=== PATIENT | male | born 1960 | race Caucasian/White ===

== ENCOUNTER 2018-07-14 00:20 | Emergency (ER) | payer OTHER ==
[2018-07-14 02:24] LABS: ABSOLUTE BASOPHILS # (AUTO) 0.1 10^3/uL (0.0-0.2); ABSOLUTE EOSINOPHILS # (AUTO) 0.2 10^3/uL (0.0-0.6); ABSOLUTE LYMPHOCYTES (AUTO) 3.3 10^3/uL (0.5-4.7); ABSOLUTE NEUT (AUTO) 6.9 10^3/uL (1.7-8.2); BASOPHILS % (AUTO) 0.9 % (0-2); EOSINOPHILS % (AUTO) 2.1 % (0-6); HEMATOCRIT 45.4 % (37.9-51.0); HEMOGLOBIN 15.5 g/dL (13.5-17.0); LYMPHOCYTES % (AUTO) 28.4 % (13-45); MEAN CORPUSCULAR HEMOGLOBIN 30.3 pg (27.0-33.4); MEAN CORPUSCULAR HGB CONC 34.2 g/dL (32.0-36.0); MEAN CORPUSCULAR VOLUME 89 fl (80-97); MONOCYTES % (AUTO) 8.7 % (3-13); PLATELET COUNT 271 10^3/uL (150-450); RED BLOOD COUNT 5.12 10^6/uL (4.35-5.55); SEGMENTED NEUTROPHILS % (AUTO) 59.9 % (42-78); TOTAL CELLS COUNTED % (AUTO) 100 %; WHITE BLOOD COUNT 11.5 10^3/uL (4.0-10.5)
[2018-07-14 02:41] LABS: ALANINE AMINOTRANSFERASE 22 U/L (21-72); ALBUMIN 4.3 g/dL (3.5-5.0); ALKALINE PHOSPHATASE 96 U/L (38-126); ANION GAP 8 (5-19); ASPARTATE AMINO TRANSFERASE 19 U/L (17-59); BILIRUBIN,DIRECT 0.3 mg/dL (0.0-0.4); BILIRUBIN,TOTAL 0.4 mg/dL (0.2-1.3); BLOOD UREA NITROGEN 30 mg/dL (7-20); CALCIUM 9.7 mg/dL (8.4-10.2); CARBON DIOXIDE 24 mmol/L (22-30); CHLORIDE 110 mmol/L (98-107); GLUCOSE 100 mg/dL (75-110); POTASSIUM 4.1 mmol/L (3.6-5.0); SODIUM 141.6 mmol/L (137-145); TOTAL PROTEIN 6.9 g/dL (6.3-8.2)
--- NOTE | 2018-07-14 03:35 | RADIOLOGY REPORT (SQ) ---
EXAM DESCRIPTION: XR CHEST 1 VIEW COMPLETED DATE/TME: 07/14/2018 02:44 CLINICAL HISTORY: 58 years, Male, CP COMPARISON: None. NUMBER OF VIEWS: 1 TECHNIQUE: Portable chest LIMITATIONS: None. FINDINGS: Heart size normal. Lungs clear. No pneumothorax IMPRESSION: Negative chest copyright 2010 [employer]- All Rights Reserved
--- NOTE | 2018-07-14 06:48 | ER Document Report ---
ED General - General Chief Complaint: Chest Pain Stated Complaint: CHEST PAIN Time Seen by Provider: 07/14/18 02:43 Primary Care Provider: MICHAELA MCELROY [Primary Care Provider] - Follow up as needed Notes: Patient is a 58-year-old male presents to the emergency department for intermittent chest pain. Patient states he currently does not have any chest pain. States he has had multiple recent deaths in his family and feels very anxious. Patient states he does have a history of anxiety but has had this recurrent chest pain so he decided to present to the emergency room. Patient states around the age of 22 he did have a stress test and catheterization due to extensive cocaine use and recurrent chest pain. Patient is denying shortness of breath, nausea, vomiting, diarrhea, abdominal pain, URI symptoms, fever. Past medical history: Anxiety Medications: Currently none Allergies: none Patient is a smoker, history of past cocaine use. States he currently does not use cocaine or any other illicit drugs. TRAVEL OUTSIDE OF THE [place] IN LAST 30 DAYS: No - Related Data Allergies/Adverse Reactions: No Known Allergies Allergy (Unverified 11/28/11 15:06) Past Medical History - General Information source: Patient - Social History Smoking Status: Current Every Day Smoker Chew tobacco use (# tins/day): No Drug Abuse: Cocaine Family History: Reviewed & Not Pertinent Patient has suicidal ideation: No Patient has homicidal ideation: No Renal/ Medical History: Denies: Hx Peritoneal Dialysis - Immunizations Hx Diphtheria, Pertussis, Tetanus Vaccination: Yes Review of Systems - Review of Systems Constitutional: No symptoms reported EENT: No symptoms reported Cardiovascular: See HPI Respiratory: No symptoms reported Gastrointestinal: No symptoms reported Genitourinary: No symptoms reported Male Genitourinary: No symptoms reported Musculoskeletal: No symptoms reported Skin: No symptoms reported Hematologic/Lymphatic: No symptoms reported Neurological/Psychological: No symptoms reported Physical Exam - Vital signs Vitals: Temp Pulse Resp BP Pulse Ox 97.8 F 102 H 18 119/78 97 07/14/18 01:02 07/14/18 01:02 07/14/18 01:02 07/14/18 01:02 07/14/18 01:02 - Notes Notes: GENERAL: Alert, interacts well. No acute distress. HEAD: Normocephalic, atraumatic. EYES: Pupils equal, round, and reactive to light. Extraocular movements intact. ENT: Oral mucosa moist, tongue midline. NECK: Full range of motion. Supple. Trachea midline. LUNGS: Clear to auscultation bilaterally, no wheezes, rales, or rhonchi. No respiratory distress. HEART: Regular rate and rhythm. No murmur Chest: No crepitus felt, no erythema or ecchymosis noted anterior posterior chest wall ABDOMEN: Soft, non-tender. Non-distended. Bowel sounds present in all 4 quadrants. EXTREMITIES: Moves all 4 extremities spontaneously. No edema, normal radial and dorsalis pedis pulses bilaterally. No cyanosis. BACK: no cervical, thoracic, lumbar midline tenderness. No saddle anesthesia, normal distal neurovascular exam. NEUROLOGICAL: Alert and oriented x3. Normal speech. cranial nerves II through XII grossly intact. PSYCH: Normal affect, normal mood. SKIN: Warm, dry, normal turgor. No rashes or lesions noted. Course - Re-evaluation Re-evalutation: Patient's labs show a slight leukocytosis of 11.5, no signs of anemia, patient had delta negative troponins. Patient's chest x-ray shows no signs of pneumonia, pneumothorax, rib fracture. Initial EKG in the emergency department shows a sinus rhythm rate of 98, QTC 450, no ST segment elevations or depressions. Repeat EKG done with repeat troponin shows a sinus rhythm of 68, QTC 434, no ST segment elevations or depressions noted. Patient continues to be chest pain-free in the emergency department. Patient's heart score is currently a 2 based on his age and risk factor of smoking. Patient does state this chest pain had come and gone pretty frequently while he was at his family's funerals. I feel as though his heart score tied with history of anxiety, negative delta troponin, chest pain-free the entire stay in the emergency department patient is stable for discharge. - Vital Signs Vital signs: Temp Pulse Resp BP Pulse Ox 97.8 F 102 H 14 116/80 99 07/14/18 01:02 07/14/18 01:02 07/14/18 05:01 07/14/18 05:00 07/14/18 05:01 - Laboratory Result Diagrams: 07/14/18 02:14 07/14/18 02:14 Laboratory results interpreted by me: 07/14/18 07/14/18 02:14 02:14 WBC 11.5 H Chloride 110 H BUN 30 H Discharge - Discharge Clinical Impression: Chest pain Qualifiers: Chest pain type: unspecified Qualified Code(s): R07.9 - Chest pain, unspecified Condition: Stable Disposition: HOME, SELF-CARE Instructions: Chest Pain of Unclear Cause ([facility]) Additional Instructions: As we discussed you have been seen and treated in the emergency department for your generalized chest pain. Feels no signs of abnormalities. As we discussed this may be due to your anxiety. You should follow-up with your primary care provider or return to the emergency room should you have any other episodes of chest pain. [facility] will be provided in this packet. This is a clinic you can go to if you are uninsured. [facility]errals: [facility] [[facility] - Follow up as needed [facility] [Provider Group] - Follow up as needed
[2018-07-14 06:52] VITALS: BP 112/83
--- NOTE | 2018-07-14 08:14 | EKG REPORT ---
SEVERITY:- NORMAL ECG - SINUS RHYTHM : Confirmed by: Marco Washington MD 14-Jul-2018 08:14:18
--- NOTE | 2018-07-14 08:15 | EKG REPORT ---
SEVERITY:- NORMAL ECG - SINUS RHYTHM : Confirmed by: Marco Washington MD 14-Jul-2018 08:14:32
== END 2018-07-14 07:02 | disposition home or self-care (01) ==
LOC: ER 00:20
DX: R07.9 Chest pain, unspecified (principal); F17.200 Nicotine dependence, unspecified, uncomplicated
CPT/HCPCS: 36415; 71045; 80053; 84484; 85025; 93005; 93010; 99284

== ENCOUNTER 2018-07-18 23:11 | Emergency (ER) | payer OTHER ==
[2018-07-19] MEDS ORDERED: ASPIRIN 81 MG TABLET, CHEWABLE PO ONE (01:13)
--- NOTE | 2018-07-19 01:16 | ER Document Report ---
ED Cardiac - General Chief Complaint: Chest Pain Stated Complaint: CHEST PAINS Time Seen by Provider: 07/19/18 01:02 Primary Care Provider: MICHAELA MCELROY [Primary Care Provider] - Follow up tomorrow Notes: Patient is a 58-year-old male that comes to the emergency department for chief complaint of chest pain. He states that he has been having chest pain intermittently for "sometime", he states that he was sitting in his recliner when he suddenly felt a sharper pain over his left lower chest, this caused him to be concerned, as result he came to the emergency department. He states that he has had a stressful month, he felt like he is having "panic attacks" at home, he was prompted by a friend to come in. He was seen here 4 days ago for the same. He had 2 deaths in the family this month. He denies history of DE, cannot tell me if his family have had heart attacks, he does smoke, he denies any daily medication, he is only previous diagnosis was anxiety (previously medicated). Patient does admit to a remote history of cocaine use, states this was over 15 years ago, states in his 20s he actually had a cardiac catheterization because of this and it was negative. TRAVEL OUTSIDE OF THE [place] IN LAST 30 DAYS: No - Related Data Allergies/Adverse Reactions: No Known Allergies Allergy (Unverified 11/28/11 15:06) Past Medical History - General Information source: Patient - Social History Smoking Status: Current Every Day Smoker Smoking Education Provided: Yes - <3 min Frequency of alcohol use: None Drug Abuse: Marijuana Lives with: Friend Family History: Reviewed & Not Pertinent Renal/ Medical History: Denies: Hx Peritoneal Dialysis Psychiatric Medical History: Reports: Hx Anxiety - Immunizations Hx Diphtheria, Pertussis, Tetanus Vaccination: Yes Review of Systems - Review of Systems Constitutional: No symptoms reported EENT: No symptoms reported Cardiovascular: See HPI Respiratory: No symptoms reported Gastrointestinal: No symptoms reported Genitourinary: No symptoms reported Male Genitourinary: No symptoms reported Musculoskeletal: No symptoms reported Skin: No symptoms reported Hematologic/Lymphatic: No symptoms reported Neurological/Psychological: See HPI Physical Exam - Vital signs Vitals: Temp Pulse Resp BP Pulse Ox 98.1 F 96 18 126/81 H 97 07/18/18 23:31 07/18/18 23:31 07/18/18 23:31 07/18/18 23:31 07/18/18 23:31 - Notes Notes: GENERAL: Alert, interacts well. No acute distress. HEAD: Normocephalic, atraumatic. EYES: Pupils equal, round, and reactive to light. Extraocular movements intact. ENT: Oral mucosa moist, tongue midline. Oropharynx unremarkable. Airway patent. Nares patent, no nasal septal hematoma, TM's intact. NECK: Full range of motion. Supple. Trachea midline. LUNGS: Clear to auscultation bilaterally, no wheezes, rales, or rhonchi. No respiratory distress. HEART: Regular rate and rhythm. No murmur ABDOMEN: Soft, non-tender. Non-distended. Bowel sounds present in all 4 quadrants. GENITOURINARY: Deferred EXTREMITIES: Moves all 4 extremities spontaneously. No edema, normal radial and dorsalis pedis pulses bilaterally. No cyanosis. BACK: no cervical, thoracic, lumbar midline tenderness. No saddle anesthesia, normal distal neurovascular exam. NEUROLOGICAL: Alert and oriented x3. Normal speech. [cranial nerves II through XII grossly intact]. PSYCH: Normal affect, normal mood. SKIN: Warm, dry, normal turgor. No rashes or lesions noted. Course - Re-evaluation Re-evalutation: Patient calm and well-appearing on my exam. He is asymptomatic. EKG sinus rhythm with no T wave inversions or ST segment changes in consecutive leads. No significant change from prior. Chest x-ray unremarkable. CBC unremarkable, chemistry unremarkable. 2 sets of negative troponins were obtained. I discussed at length with patient. I discussed potentially admitting him for chest pain rule out because this is the second time he is here for chest pain this week, over he declines. His heart score is only 2. He states that the only thing he feels he needs to improve on is improved sleep and management of his anxiety. I offered for him to stay and talk to psychiatry this morning, he declines. He states he has appointment with both psychiatry and a therapist through the [facility] already set up, he states that he was hoping to get something "mild" temporarily to help him sleep, he states he also has primary care he will follow-up with in regards to cardiac evaluation. I did discuss smoking cessation. Patient emphatically denies suicidal ideations or homicidal ideations, he lives with a friend, he does have good support with his friend system he reports. Patient was provided with Vistaril after a discussion, discussed return precautions, patient states satisfaction and agreement with plan. - Vital Signs Vital signs: Temp Pulse Resp BP Pulse Ox 97.7 F 96 20 124/83 97 07/19/18 05:50 07/18/18 23:31 07/19/18 05:50 07/19/18 05:50 07/19/18 05:50 - Laboratory Result Diagrams: 07/19/18 01:45 07/19/18 01:45 Laboratory results interpreted by me: 07/19/18 07/19/18 01:45 01:45 WBC 12.5 H RDW 14.4 H Chloride 112 H BUN 25 H Total Protein 6.2 L - EKG Interpretation by Me Additional EKG results interpreted by me: EKG shows sinus rhythm at a rate of 97, no T wave inversions or ST segment changes in negative leads, normal axis, QTC of 432, [place] interval of 144. Discharge - Discharge Clinical Impression: Anxiety Chest pain Qualifiers: Chest pain type: unspecified Qualified Code(s): R07.9 - Chest pain, unspecified Condition: Stable Disposition: HOME, SELF-CARE Additional Instructions: Your workup today is reassuring. I recommend that you follow-up closely with primary care for additional evaluation and management of both anxiety and chest pain workup. Stop smoking. Return if you worsen including return pain, difficulty breathing, passing out, or something is not right. Prescriptions: Hydroxyzine Pamoate [Vistaril 25 mg Capsule] 1 - 2 cap PO Q6 PRN #30 capsule PRN Reason: [facility]errals: [facility] [[facility] - Follow up tomorrow
[2018-07-19 02:05] LABS: ABSOLUTE BASOPHILS # (AUTO) 0.1 10^3/uL (0.0-0.2); ABSOLUTE EOSINOPHILS # (AUTO) 0.3 10^3/uL (0.0-0.6); ABSOLUTE LYMPHOCYTES (AUTO) 2.9 10^3/uL (0.5-4.7); ABSOLUTE NEUT (AUTO) 8.1 10^3/uL (1.7-8.2); BASOPHILS % (AUTO) 0.5 % (0-2); EOSINOPHILS % (AUTO) 2.4 % (0-6); HEMATOCRIT 42.7 % (37.9-51.0); HEMOGLOBIN 14.3 g/dL (13.5-17.0); LYMPHOCYTES % (AUTO) 23.5 % (13-45); MEAN CORPUSCULAR HEMOGLOBIN 30.3 pg (27.0-33.4); MEAN CORPUSCULAR HGB CONC 33.6 g/dL (32.0-36.0); MEAN CORPUSCULAR VOLUME 90 fl (80-97); MONOCYTES % (AUTO) 8.4 % (3-13); PLATELET COUNT 260 10^3/uL (150-450); RED BLOOD COUNT 4.74 10^6/uL (4.35-5.55); RED CELL DISTRIBUTION WIDTH 14.4 % (11.5-14.0); SEGMENTED NEUTROPHILS % (AUTO) 65.2 % (42-78); TOTAL CELLS COUNTED % (AUTO) 100 %; WHITE BLOOD COUNT 12.5 10^3/uL (4.0-10.5)
[2018-07-19 02:30] LABS: ALANINE AMINOTRANSFERASE 25 U/L (21-72); ALBUMIN 3.7 g/dL (3.5-5.0); ALKALINE PHOSPHATASE 91 U/L (38-126); ANION GAP 5 (5-19); ASPARTATE AMINO TRANSFERASE 23 U/L (17-59); BILIRUBIN,DIRECT 0.2 mg/dL (0.0-0.4); BILIRUBIN,TOTAL 0.3 mg/dL (0.2-1.3); BLOOD UREA NITROGEN 25 mg/dL (7-20); CALCIUM 8.9 mg/dL (8.4-10.2); CARBON DIOXIDE 25 mmol/L (22-30); CHLORIDE 112 mmol/L (98-107); GLUCOSE 91 mg/dL (75-110); POTASSIUM 3.9 mmol/L (3.6-5.0); SODIUM 141.6 mmol/L (137-145); TOTAL PROTEIN 6.2 g/dL (6.3-8.2)
[2018-07-19 02:48] LABS: URINE AMPHETAMINES SCREEN NEGATIVE; URINE BARBITURATES SCREEN NEGATIVE; URINE BENZODIAZEPINES SCREEN NEGATIVE; URINE COCAINE SCREEN NEGATIVE; URINE MARIJUANA (THC) SCREEN UNCONFIRMED POSITIVE; URINE METHADONE SCREEN NEGATIVE; URINE PHENCYCLIDINE SCREEN NEGATIVE
--- NOTE | 2018-07-19 03:06 | RADIOLOGY REPORT (SQ) ---
CLINICAL HISTORY: chest pain COMPARISON: July 14, 2018. TECHNIQUE: XR CHEST 1 VIEW 07/19/2018 1:13 AM CDT FINDINGS: Cardiac silhouette is normal in size. Lungs are clear without consolidation, atelectasis, mass or edema. There is no pleural effusion. There is no pneumothorax. There are no acute osseous findings. IMPRESSION: Clear lungs.
[2018-07-19] MEDS ORDERED: HYDROXYZINE PAMOATE 25 MG CAPSULE (4 CAP/ER DISP) PO PRN (05:40)
[2018-07-19 05:56] VITALS: BP 124/83
--- NOTE | 2018-07-20 00:05 | EKG REPORT ---
SEVERITY:- NORMAL ECG - SINUS RHYTHM : Confirmed by: Elmo Lim 20-Jul-2018 00:05:13
== END 2018-07-19 05:56 | disposition home or self-care (01) ==
LOC: ER 23:11
DX: F41.9 Anxiety disorder, unspecified (principal); R07.9 Chest pain, unspecified; F17.200 Nicotine dependence, unspecified, uncomplicated; F12.10 Cannabis abuse, uncomplicated
CPT/HCPCS: 93005; 99284; 36415; 85025; 80053; 84484; 80307; 71045; 93010; J3490

== ENCOUNTER 2018-07-22 00:15 | Emergency (ER) | payer OTHER ==
[2018-07-22 00:29] VITALS: BP 134/78
[2018-07-22] MEDS ORDERED: KETOROLAC TROMETHAMINE 60 MG/2 ML SDV IM ONE (01:47)
--- NOTE | 2018-07-22 01:51 | ER Document Report ---
HPI - HPI Patient complains to provider of: sunburn Time Seen by Provider: 07/22/18 01:40 Pain Level: 4 Context: Patient is a 58-year-old male that comes to the emergency department for chief complaint of a sunburn. He states he was out working in the sun, used a much weaker sunscreen than usual, and sustained a burn as a result. He has a little bit of burn to his legs, mainly however to his forearms. He states there are tiny areas of blistering on the left forearm, these have not popped. He denies dizziness, nausea, vomiting. He states that it is burning and he was wondering if he could be instructed which cream to use for best results. He is not a diabetic. Past Medical History - General Information source: Patient - Social History Smoking Status: Current Every Day Smoker Chew tobacco use (# tins/day): No Smoking Education Provided: Yes - <3 min Frequency of alcohol use: Social Drug Abuse: Marijuana Lives with: Friend Family History: Reviewed & Not Pertinent Patient has suicidal ideation: No Patient has homicidal ideation: No Renal/ Medical History: Denies: Hx Peritoneal Dialysis Psychiatric Medical History: Reports: Hx Anxiety - Immunizations Hx Diphtheria, Pertussis, Tetanus Vaccination: Yes Vertical Provider Document - CONSTITUTIONAL General Appearance: WD/WN, No Apparent Distress - INFECTION CONTROL TRAVEL OUTSIDE OF THE [place] IN LAST 30 DAYS: No - HEENT HEENT: Atraumatic, Normal ENT Exam, Normocephalic - NECK Neck: Normal Inspection - RESPIRATORY Respiratory: Breath Sounds Normal, No Respiratory Distress - CARDIOVASCULAR Cardiovascular: Regular Rate, Regular Rhythm - GI/ABDOMEN Gastrointestinal: Abdomen Soft, Abdomen Non-Tender - BACK Back: Normal Inspection - MUSCULOSKELETAL/EXTREMETIES Musculoskeletal/Extremeties: MAEW, FROM, Non-Tender - NEURO Level of Consciousness: Awake, Alert, Appropriate Motor/Sensory: No Motor Deficit, No Sensory Deficit - DERM Integumentary: Rash - First-degree sunburn noted along short-sleeved distribution of both arms starting just superior to the elbow and extending to the wrists. There are a few tiny scattered areas that appear to be possible little blisters suggesting minimal second-degree burn areas. Full range of motion of all extremities. No circumferential whitt noted, normal distal neurovascular exam, normal examination otherwise. There is also some erythema around the legs near the calf is consistent with first-degree whitt. Course - Re-evaluation Re-evalutation: Patient is not tachycardic on my exam. Rechecked and unremarkable. Patient has first-degree whitt consistent with sunburns, there are a few tiny areas over the left forearm which could be minimal second-degree whitt, however his examination is unremarkable otherwise. No concerning joint, circumferential, or significant whitt noted. Examination is otherwise unremarkable. Patient states he just wants recommendations. He was given Toradol as well. Given recommendations, care instructions, follow-up instructions, and return precautions. Patient states satisfaction and agreement. - Vital Signs Vital signs: Temp Pulse Resp BP Pulse Ox 97.5 F 105 H 18 134/78 H 99 07/22/18 00:28 07/22/18 00:28 07/22/18 00:28 07/22/18 00:28 07/22/18 00:28 Discharge - Discharge Clinical Impression: Sunburn Condition: Stable Disposition: HOME, SELF-CARE Additional Instructions: Your evaluation shows first-degree whitt from the sunburn, there also a very tiny locations of secondary degree whitt where the little blisters are. When the blisters pop, clean with soap and water and apply topical antibiotic to avoid infection. The majority of this should be resolved in approximately 1 week. I recommend Tylenol, ibuprofen, and [id number] lidocaine with Solarcaine for symptom management. Follow-up with primary care. Return if you worsen including vomiting, fever, discoloration, discharge, or any other concerning or worsening symptoms. [facility]errals: [facility] [NO [facility]] - Follow up as needed
== END 2018-07-22 02:03 | disposition home or self-care (01) ==
LOC: ER 00:15
DX: L55.0 Sunburn of first degree (principal); F17.200 Nicotine dependence, unspecified, uncomplicated
CPT/HCPCS: 99282; 96372; J1885

== ENCOUNTER 2018-07-29 18:34 | Emergency (ER) | payer OTHER ==
[2018-07-29 18:48] VITALS: BP 125/81
--- NOTE | 2018-07-29 19:37 | ER Document Report ---
HPI - HPI Time Seen by Provider: 07/29/18 19:27 Pain Level: Denies Context: Patient is a 58-year-old male who presents the emergency department with an inquiry for medication refill. He was seen here and prescribed Vistaril last week. He states that he is unable to fill his Vistaril because there is a backorder on this medication. He is here inquiring for a different medication. He denies any symptoms at this time. - CONSTITUTIONAL Constitutional: DENIES: Fever, Chills - EENT EENT: DENIES: Sore Throat, Ear Pain, Eye problems - NEURO Neurology: DENIES: Headache, Weakness, Vision blurred, Dizzinesss / Vertigo - CARDIOVASCULAR Cardiovascular: DENIES: Chest pain - RESPIRATORY Respiratory: DENIES: Trouble Breathing, Coughing - GASTROINTESTINAL Gastrointestinal: DENIES: Abdominal Pain, Black / Bloody Stools - URINARY Urinary: DENIES: Dysuria, Urgency, Frequency - MUSCULOSKELETAL Musculoskeletal: DENIES: Extremity pain Past Medical History - Social History Smoking Status: Current Every Day Smoker Chew tobacco use (# tins/day): No Frequency of alcohol use: Occasional Drug Abuse: None Family History: Reviewed & Not Pertinent Patient has suicidal ideation: No Patient has homicidal ideation: No Renal/ Medical History: Denies: Hx Peritoneal Dialysis Psychiatric Medical History: Reports: Hx Anxiety - Immunizations Hx Diphtheria, Pertussis, Tetanus Vaccination: Yes Vertical Provider Document - CONSTITUTIONAL Agree With Documented VS: Yes Exam Limitations: No Limitations - INFECTION CONTROL TRAVEL OUTSIDE OF THE [place] IN LAST 30 DAYS: No - HEENT HEENT: Atraumatic, Normocephalic, PERRLA - NECK Neck: Normal Inspection - RESPIRATORY Respiratory: Breath Sounds Normal, No Respiratory Distress - CARDIOVASCULAR Cardiovascular: Regular Rhythm Pulses: Normal: Radial - MUSCULOSKELETAL/EXTREMETIES Musculoskeletal/Extremeties: FROM - NEURO Level of Consciousness: Awake, Alert, Appropriate Motor/Sensory: No Motor Deficit, No Sensory Deficit - DERM Integumentary: Warm, Dry Course - Re-evaluation Re-evalutation: 07/29/18 Patient is nontoxic in appearance and denies any anxiety at this time. I called [facility] on the [address] of [address] and they state that they do not have hydroxyzine in the capsule, because it is on back order. They do have hydroxyzine in the tablet form, but not in the capsule. I will order him hydroxyzine in the form. He is in agreement with this plan. States he is not a danger to self or others. Verbal discharge instructions were given to the patient. They verbalized understanding. They are stable for discharge. - Vital Signs Vital signs: Temp Pulse Resp BP Pulse Ox 98.2 F 92 16 125/81 97 07/29/18 18:46 07/29/18 18:46 07/29/18 18:46 07/29/18 18:46 07/29/18 18:46 Discharge - Discharge Clinical Impression: Medication refill Condition: Stable Disposition: HOME, SELF-CARE Additional Instructions: You are here in the emergency department for a medication refill. Your medication can be picked up at [facility] on the corner of [address] and [address] Please follow-up with a primary care provider in regards to this visit. Prescriptions: Hydroxyzine HCl [Atarax 25 mg Tablet] 1 - 2 tab PO Q6HP PRN #35 tablet PRN Reason: Anxiety [facility]errals: [facility] [Primary [facility]] - Follow up as needed
== END 2018-07-29 19:48 | disposition home or self-care (01) ==
LOC: ER 18:34
DX: Z76.0 Encounter for issue of repeat prescription (principal); F41.9 Anxiety disorder, unspecified; F17.200 Nicotine dependence, unspecified, uncomplicated
CPT/HCPCS: 99281

== ENCOUNTER 2018-10-16 01:42 | Emergency (ER) | payer OTHER ==
[2018-10-16] MEDS ORDERED: KETOROLAC TROMETHAMINE INJ/PF 30 MG/1 ML SDV IV ONE (05:40)
[2018-10-16] MEDS ORDERED: ONDANSETRON HCL INJ/PF 4 MG/2 ML SDV IV ONE (05:40)
[2018-10-16 06:57] LABS: ABSOLUTE BASOPHILS # (AUTO) 0.1 10^3/uL (0.0-0.2); ABSOLUTE EOSINOPHILS # (AUTO) 0.3 10^3/uL (0.0-0.6); ABSOLUTE MONOCYTES (AUTO) 1.1 10^3/uL (0.1-1.4); ABSOLUTE NEUT (AUTO) 10.1 10^3/uL (1.7-8.2); BASOPHILS % (AUTO) 0.5 % (0-2); EOSINOPHILS % (AUTO) 1.7 % (0-6); HEMATOCRIT 46.5 % (37.9-51.0); HEMOGLOBIN 15.2 g/dL (13.5-17.0); LYMPHOCYTES % (AUTO) 20.8 % (13-45); MEAN CORPUSCULAR HEMOGLOBIN 30.1 pg (27.0-33.4); MEAN CORPUSCULAR HGB CONC 32.8 g/dL (32.0-36.0); MEAN CORPUSCULAR VOLUME 92 fl (80-97); MONOCYTES % (AUTO) 7.8 % (3-13); PLATELET COUNT 342 10^3/uL (150-450); RED BLOOD COUNT 5.06 10^6/uL (4.35-5.55); RED CELL DISTRIBUTION WIDTH 13.9 % (11.5-14.0); SEGMENTED NEUTROPHILS % (AUTO) 69.2 % (42-78); TOTAL CELLS COUNTED % (AUTO) 100 %; WHITE BLOOD COUNT 14.6 10^3/uL (4.0-10.5)
--- NOTE | 2018-10-16 07:03 | ER Document Report ---
Entered by DANE RICE SCRIBE 10/16/18 0649 Acting as scribe for:TRAVIS ALFORD MD ED GI/ - General Chief Complaint: Flank Pain Stated Complaint: BACK PAIN [facility] [[facility]] - Follow up as needed Mode of Arrival: Ambulatory Information source: Patient Notes: 58-year-old male who presents to the emergency department today with complaints of left sided flank pain that has been intermittent for the last x2 days. Patient describes this pain as a dull pain, stating that it comes and goes. Patient states he was started on lithium about 2 months ago and has not had his levels checked since being started on it. Patient is concerned that the lithium could be causing his pain. TRAVEL OUTSIDE OF THE [place] IN LAST 30 DAYS: No - Related Data Allergies/Adverse Reactions: No Known Allergies Allergy (Unverified 11/28/11 15:06) Past Medical History - General Information source: Patient - Social History Smoking Status: Current Every Day Smoker Cigarette use (# per day): Yes - 1 ppd Frequency of alcohol use: Rare Drug Abuse: None Family History: Reviewed & Not Pertinent Psychiatric Medical History: Reports: Hx Anxiety, Hx Depression Past Surgical History: Reports: Hx Orthopedic Surgery - left wrist, Hx Tonsillectomy - Immunizations Hx Diphtheria, Pertussis, Tetanus Vaccination: Yes Review of Systems - Review of Systems Constitutional: No symptoms reported EENT: No symptoms reported Cardiovascular: No symptoms reported Respiratory: No symptoms reported Gastrointestinal: No symptoms reported Genitourinary: See HPI, Flank pain - left Male Genitourinary: No symptoms reported Musculoskeletal: No symptoms reported Skin: No symptoms reported Hematologic/Lymphatic: No symptoms reported Neurological/Psychological: No symptoms reported -: Yes All other systems reviewed and negative Physical Exam - Vital signs Vitals: Temp Pulse Resp BP Pulse Ox 97.6 F 85 16 117/82 99 10/16/18 02:38 10/16/18 02:38 10/16/18 02:38 10/16/18 02:38 10/16/18 02:38 - Notes Notes: Physical Exam: General: Alert, appears well. HEENT: Normocephalic. Atraumatic. PERRL. Extraocular movements intact. Oropharynx clear. Neck: Supple. Non-tender. Respiratory: No respiratory distress. Coarse rhonchi with forced cough. Cardiovascular: Regular rate and rhythm. Abdominal: Normal Inspection. Non-tender. No distension. Normal Bowel Sounds. Back: Tenderness to palpation over the left flank just inferior to the ribs. There is no rash or skin sensitivity noted. There is no CVA percussion tenderness. Extremities: Moves all four extremities. Upper extremities: Normal inspection. Normal ROM. Lower extremities: Normal inspection. No edema. Normal ROM. Neurological: Normal cognition. AAOx4. Normal speech. Psychological: Normal affect. Normal Mood. Skin: Warm. Dry. Normal color. Course - Re-evaluation Re-evalutation: 10/16/18 11:54 On reevaluation, the patient is feeling much better. He does state the pain seems to come and go. At this time when most recently examined there was no tenderness elicited on palpating the area that had been tender previously. - Vital Signs Vital signs: Temp Pulse Resp BP Pulse Ox 97.6 F 85 16 117/82 99 10/16/18 02:38 10/16/18 02:38 10/16/18 02:38 10/16/18 02:38 10/16/18 02:38 - Laboratory Result Diagrams: 10/16/18 06:41 10/16/18 06:41 Laboratory results interpreted by me: 10/16/18 10/16/18 06:41 06:41 WBC 14.6 H Absolute Neutrophils 10.1 H BUN 29 H ALT 19 L Total Protein 5.8 L Lipase 478.1 H [place] < 0.2 L - Diagnostic Test Radiology reviewed: Image reviewed, Reports reviewed - Noncontrasted CT scan of abdomen pelvis is unremarkable. Discharge - Discharge Clinical Impression: Flank pain Condition: Stable Disposition: HOME, SELF-CARE Additional Instructions: Flank Pain We weren't able to prove an exact cause for your flank pain. Pain in the flank can be caused by a muscle strain or spasm. Sometimes a kidney stone causes pain, but can't be found on our tests. Infection in the kidney should be evident on a urine test. Early shingles can occasionally cause flank pain, without the rash that proves the diagnosis. On rare occasions, disease of the pancreas, aorta, spleen, or colon can create pain in the flank. At this time, there's no evidence of a dangerous condition, and it seems safe for you to be at home. If the pain goes away and does not come back, no further testing will be needed. If pain persists, or becomes more severe, we may need to repeat some tests or order additional new testing. Blood in the urine, urgency to urinate frequently, and pain that radiates to the groin can indicate a kidney stone. Fever may mean that the pain is due to infection, either of the kidney or the colon (diverticulitis). If your pain is early shingles, you should develop an eruption of blisters in the painful area within a few days. Call the doctor or return if you have pain that is spreading or becoming more severe, pain that does not resolve with time, fever, or any other new symptoms. Your evaluation today did not show an explanation for your discomfort other than the tenderness found when palpating the left flank muscles. Rest today. Avoid turning and twisting and other physical straining. Follow-up with your doctor this week if not improving. RETURN TO THE EMERGENCY ROOM IF ANY NEW OR WORSENING SYMPTOMS. [facility]errals: [facility] [[facility]] - Follow up as needed Scribe Attestation: 10/16/18 07:48 I personally performed the services described in the documentation, reviewed and edited the documentation which was dictated to the scribe in my presence, and it accurately records my words and actions. I personally performed the services described in the documentation, reviewed and edited the documentation which was dictated to the scribe in my presence, and it accurately records my words and actions.
[2018-10-16 07:15] LABS: ALANINE AMINOTRANSFERASE 19 U/L (21-72); ALBUMIN 3.7 g/dL (3.5-5.0); ALKALINE PHOSPHATASE 79 U/L (38-126); ANION GAP 6 (5-19); ASPARTATE AMINO TRANSFERASE 20 U/L (17-59); BILIRUBIN,DIRECT 0.2 mg/dL (0.0-0.4); BILIRUBIN,TOTAL 0.5 mg/dL (0.2-1.3); BLOOD UREA NITROGEN 29 mg/dL (7-20); CALCIUM 8.7 mg/dL (8.4-10.2); CARBON DIOXIDE 27 mmol/L (22-30); CHLORIDE 107 mmol/L (98-107); GLUCOSE 95 mg/dL (75-110); LIPASE 478.1 U/L (23-300); POTASSIUM 4.4 mmol/L (3.6-5.0); SODIUM 139.9 mmol/L (137-145); TOTAL PROTEIN 5.8 g/dL (6.3-8.2)
[2018-10-16 07:16] LABS: LITHIUM < 0.2 mEq/L (0.6-1.2)
[2018-10-16] MEDS: NORMAL SALINE 1000 ML 1,000 ML IV PRN ×2 (07:25→08:30)
[2018-10-16 07:56] LABS: AMORPHOUS SEDIMENT,URINE 1+ /HPF
[2018-10-16 07:57] LABS: APPEARANCE,URINE CLOUDY; BILIRUBIN,URINE NEGATIVE (NEGATIVE); COLOR,URINE YELLOW; GLUCOSE, URINE NEGATIVE (NEGATIVE); KETONES,URINE NEGATIVE (NEGATIVE)
[2018-10-16 07:58] LABS: LEUKOCYTE ESTERASE,URINE NEGATIVE (NEGATIVE); NITRITE,URINE NEGATIVE (NEGATIVE); PROTEIN,URINE NEGATIVE (NEGATIVE); UROBILINOGEN,URINE NEGATIVE mg/dL (<2.0)
--- NOTE | 2018-10-16 11:07 | RADIOLOGY REPORT (SQ) ---
EXAM DESCRIPTION: CT ABD/PELVIS NO ORAL OR IV COMPLETED DATE/TIME: 10/16/2018 10:25 am REASON FOR STUDY: Left flank pain with leukocytosis COMPARISON: None. TECHNIQUE: CT scan of the abdomen and pelvis performed without intravenous or oral contrast. Images reviewed with lung, soft tissue, and bone windows. Reconstructed coronal and sagittal MPR images revi ewed. All images stored on PACS. All CT scanners at this facility use dose modulation, iterative reconstruction, and/or weight based d osing when appropriate to reduce radiation dose to as low as reasonably achievable (ALARA). [facility]: Dose Right [facility]: CareDose [facility]: Dose Right [facility]: Teradose 4D [facility]: Smart [employer] RADIATION DOSE: CT Rad equipment meets quality standard of care and radiation dose reduction techniq ues were employed. CTDIvol: 6.6 mGy. DLP: 356 mGy-cm.mGy. LIMITATIONS: None. FINDINGS: LOWER CHEST: No significant findings. No nodules or infiltrates. NON-CONTRASTED LIVER, SPLEEN, ADRENALS: Evaluation limited by lack of IV contrast. No identified sign ificant masses. PANCREAS: No masses. No peripancreatic inflammatory changes. GALLBLADDER: No identified stones by CT criteria. No inflammatory changes to suggest cholecystitis. RIGHT KIDNEY AND URETER: No suspicious masses. Assessment limited by lack of IV contrast. No signif icant calcifications. No hydronephrosis or hydroureter. LEFT KIDNEY AND URETER: No suspicious masses. Assessment limited by lack of IV contrast. No signifi cant calcifications. No hydronephrosis or hydroureter. AORTA AND RETROPERITONEUM: No aneurysm. No retroperitoneal masses or adenopathy. BOWEL AND PERITONEAL CAVITY: No obvious masses or inflammatory changes. No free fluid. APPENDIX: Normal. PELVIS, BLADDER, AND ABDOMINAL WALL:No abnormal masses. No free fluid. Bladder normal. BONES: No significant findings. OTHER: No other significant finding. IMPRESSION: NO SIGNIFICANT OR ACUTE PROCESS IN THE ABDOMEN OR PELVIS. COMMENT: Quality ID # [id number]: Final reports with documentation of one or more dose reduction techniques (e.g., Automated exposure control, adjustment of the mA and/or kV according to patient size, use of iterative reconstruction technique) TECHNICAL DOCUMENTATION: JOB ID: [id number] [employer]- All Rights Reserved Reading location - IP/workstation name: [email or web address]
[2018-10-16 12:13] VITALS: BP 125/81
== END 2018-10-16 12:13 | disposition home or self-care (01) ==
LOC: ER 01:42
DX: R10.9 Unspecified abdominal pain (principal); F17.210 Nicotine dependence, cigarettes, uncomplicated
CPT/HCPCS: 99284; 96360; 36415; 83690; 80178; 85025; 80053; 81001; 74176; J7030

== ENCOUNTER 2018-10-16 23:29 | Emergency (ER) | payer OTHER ==
[2018-10-17] MEDS ORDERED: NORMAL SALINE 1000 ML 1,000 ML IV ONE ×2 (02:42→02:43)
--- NOTE | 2018-10-17 02:44 | ER Document Report ---
ED General - General Chief Complaint: Flank Pain Stated Complaint: LEFT LOWER SIDE BACK PAIN Time Seen by Provider: 10/17/18 02:21 Primary Care Provider: NAV[facility],MICHAELA [Primary Care Provider] - Follow up as needed Notes: Patient is a 58-year-old male that comes emergency department with chief complaint of sharp pain in his left lower back. He states that it is random, suddenly feels like he is "getting kicked". He states it lasts for a second, sharp, and then is gone. He states he was seen for this this morning, had a CAT scan that was negative, states he was doing fine at a cookout during the day but when he got home and sat down he felt it come back a few times. He denies any numbness, incontinence, fever/chills, nausea/vomiting, injury. He denies abdominal pain, chest pain. He denies history of the same. Past medical history of anxiety/depression, bipolar. He states he thought it was his lithium doing it to him earlier but this was found to be low. TRAVEL OUTSIDE OF THE [place] IN LAST 30 DAYS: No - Related Data Allergies/Adverse Reactions: No Known Allergies Allergy (Unverified 11/28/11 15:06) Past Medical History - General Information source: Patient - Social History Smoking Status: Unknown if Ever Smoked Frequency of alcohol use: None Drug Abuse: None Lives with: Alone Family History: Reviewed & Not Pertinent Renal/ Medical History: Denies: Hx Peritoneal Dialysis Psychiatric Medical History: Reports: Hx Anxiety, Hx Bipolar Disorder, Hx Depression Past Surgical History: Reports: Hx Orthopedic Surgery - left wrist, Hx Tonsillectomy - Immunizations Hx Diphtheria, Pertussis, Tetanus Vaccination: Yes Review of Systems - Review of Systems Constitutional: No symptoms reported EENT: No symptoms reported Cardiovascular: No symptoms reported Respiratory: No symptoms reported Gastrointestinal: No symptoms reported Genitourinary: No symptoms reported Male Genitourinary: No symptoms reported Musculoskeletal: See HPI Skin: No symptoms reported Hematologic/Lymphatic: No symptoms reported Neurological/Psychological: No symptoms reported Physical Exam - Vital signs Vitals: Temp Pulse Resp BP Pulse Ox 98.1 F 88 16 130/74 H 98 10/17/18 04:15 10/17/18 04:15 10/17/18 04:15 10/17/18 04:15 07/08/19 04:15 - Notes Notes: GENERAL: Alert, interacts well. No acute distress. HEAD: Normocephalic, atraumatic. EYES: Pupils equal, round, and reactive to light. Extraocular movements intact. ENT: Oral mucosa very dry, tongue midline. Oropharynx unremarkable. Airway patent. Nares patent, no nasal septal hematoma, TM's intact. NECK: Full range of motion. Supple. Trachea midline. LUNGS: Clear to auscultation bilaterally, no wheezes, rales, or rhonchi. No res piratory distress. HEART: Regular rate and rhythm. No murmur ABDOMEN: Soft, non-tender. Non-distended. Bowel sounds present in all 4 quadrants. GENITOURINARY: Deferred EXTREMITIES: Moves all 4 extremities spontaneously. No edema, normal radial and dorsalis pedis pulses bilaterally. No cyanosis. BACK: no cervical, thoracic, lumbar midline tenderness. There is some tenderness over the left lumbar paraspinal muscles without sign of trauma. No severe tenderness, no erythema, induration, fluctuance. No saddle anesthesia, normal distal neurovascular exam. Moves all extremities in full range of motion. NEUROLOGICAL: Alert and oriented x3. Normal speech. Cranial nerves II through XII grossly intact. PSYCH: Normal affect, normal mood. SKIN: Warm, dry, normal turgor. No rashes or lesions noted. Course - Re-evaluation Re-evalutation: Patient is very talkative, interactive. He does have some palpable muscular tenderness on exam. Most likely musculoskeletal. He had a CAT scan earlier which was negative. His repeat labs show evidence of some dehydration but are otherwise unremarkable. He does have dry mucous membranes. He was rehydrated. I reevaluated patient. He has no current complaints. Discussed work-up, recomm end Asians, follow-up, and return precautions. Patient states satisfaction and agreement. - Vital Signs Vital signs: Temp Pulse Resp BP Pulse Ox 98.1 F 88 16 130/74 H 98 10/17/18 04:15 10/17/18 04:15 10/17/18 04:15 10/17/18 04:15 10/17/18 04:15 - Laboratory Result Diagrams: 10/17/18 02:59 10/17/18 02:59 Laboratory results interpreted by me: 10/17/18 10/17/18 02:59 02:59 WBC 13.0 H Chloride 112 H Anion Gap 3 L BUN 29 H Total Protein 5.5 L Lipase 400.8 H Discharge - Discharge Clinical Impression: Flank pain Condition: Stable Disposition: HOME, SELF-CARE Additional Instructions: Your evaluation shows some dehydration but is otherwise unremarkable. You have been given IV fluids. Improve your hydration at home. For the area of pain which appears to be a muscle with muscle spasm, I recommend take the Flexeril if needed, apply heat to the area, and rest. This should resolve with time. Follow-up with your provider closely, your lithium level is very low (less than 0.2). Return if you worsen including severe worsening pain, fever/chills, vomiting, or any other concerning symptoms. Prescriptions: Cyclobenzaprine HCl [Flexeril 5 mg Tablet] 1 - 2 tab PO TID PRN #15 tablet PRN Reason: [facility]errals: [facility] [[facility]] - Follow up as needed
[2018-10-17 03:14] LABS: ABSOLUTE BASOPHILS # (AUTO) 0.1 10^3/uL (0.0-0.2); ABSOLUTE EOSINOPHILS # (AUTO) 0.3 10^3/uL (0.0-0.6); ABSOLUTE LYMPHOCYTES (AUTO) 3.8 10^3/uL (0.5-4.7); ABSOLUTE MONOCYTES (AUTO) 1.1 10^3/uL (0.1-1.4); ABSOLUTE NEUT (AUTO) 7.7 10^3/uL (1.7-8.2); HEMATOCRIT 42.7 % (37.9-51.0); HEMOGLOBIN 14.1 g/dL (13.5-17.0); LYMPHOCYTES % (AUTO) 29.4 % (13-45); MEAN CORPUSCULAR HEMOGLOBIN 30.3 pg (27.0-33.4); MEAN CORPUSCULAR VOLUME 92 fl (80-97); MONOCYTES % (AUTO) 8.5 % (3-13); PLATELET COUNT 307 10^3/uL (150-450); RED BLOOD COUNT 4.64 10^6/uL (4.35-5.55); SEGMENTED NEUTROPHILS % (AUTO) 59.1 % (42-78); TOTAL CELLS COUNTED % (AUTO) 100 %
[2018-10-17 03:34] LABS: ALANINE AMINOTRANSFERASE 22 U/L (21-72); ALBUMIN 3.5 g/dL (3.5-5.0); ALKALINE PHOSPHATASE 78 U/L (38-126); ASPARTATE AMINO TRANSFERASE 21 U/L (17-59); BILIRUBIN,DIRECT 0.3 mg/dL (0.0-0.4); BILIRUBIN,TOTAL 0.3 mg/dL (0.2-1.3); BLOOD UREA NITROGEN 29 mg/dL (7-20); CALCIUM 8.8 mg/dL (8.4-10.2); CARBON DIOXIDE 25 mmol/L (22-30); CHLORIDE 112 mmol/L (98-107); GLUCOSE 88 mg/dL (75-110); LIPASE 400.8 U/L (23-300); POTASSIUM 4.4 mmol/L (3.6-5.0); SODIUM 140.2 mmol/L (137-145); TOTAL PROTEIN 5.5 g/dL (6.3-8.2)
[2018-10-17 03:35] LABS: APPEARANCE,URINE CLEAR; BILIRUBIN,URINE NEGATIVE (NEGATIVE); COLOR,URINE YELLOW; GLUCOSE, URINE NEGATIVE (NEGATIVE); KETONES,URINE NEGATIVE (NEGATIVE); LEUKOCYTE ESTERASE,URINE NEGATIVE (NEGATIVE); NITRITE,URINE NEGATIVE (NEGATIVE); PROTEIN,URINE NEGATIVE (NEGATIVE); URINE SPECIFIC GRAVITY 1.025; UROBILINOGEN,URINE NEGATIVE mg/dL (<2.0)
[2018-10-17 03:46] LABS: ANION GAP 3 (5-19)
[2018-10-17 05:06] VITALS: BP 130/74
== END 2018-10-17 04:15 | disposition home or self-care (01) ==
LOC: ER 23:29
DX: R10.9 Unspecified abdominal pain (principal); M54.5 Low back pain
CPT/HCPCS: 99283; 96360; 36415; 83690; 85025; 80053; 81001; J7030

== ENCOUNTER 2018-11-04 23:19 | Emergency (ER) | payer OTHER ==
[2018-11-04 23:31] VITALS: BP 113/71
== END 2018-11-05 00:07 | disposition left against medical advice (07) ==
LOC: ER 23:19
DX: Z53.21 Procedure and treatment not carried out due to patient leaving prior to being seen by health care provider (principal)

== ENCOUNTER 2019-01-11 23:30 | Emergency (ER) | payer OTHER ==
[2019-01-11] MEDS ORDERED: CEPHALEXIN 500 MG CAPSULE PO ONE (23:48)
[2019-01-11] MEDS ORDERED: SULFAMETHOXAZOLE/TRIMETHOPRIM 800-160 MG TABLET PO ONE (23:48)
--- NOTE | 2019-01-11 23:51 | ER Document Report ---
HPI - HPI Patient complains to provider of: Right toe pain Time Seen by Provider: 01/11/19 23:44 Pain Level: 4 Context: Patient is a 58-year-old male presents to the emergency department for right toe pain. Patient's denying any injury. Patient's denying any history of gout. Patient is noted to have some redness to the medial aspect around the great toe nailbed. Patient's denying any fevers. Patient's denying any allergies. Past Medical History - General Information source: Patient - Social History Smoking Status: Current Every Day Smoker Family History: Reviewed & Not Pertinent Patient has suicidal ideation: No Patient has homicidal ideation: No Renal/ Medical History: Denies: Hx Peritoneal Dialysis Psychiatric Medical History: Reports: Hx Anxiety, Hx Bipolar Disorder, Hx Depression Past Surgical History: Reports: Hx Orthopedic Surgery - left wrist, Hx Tonsillectomy - Immunizations Hx Diphtheria, Pertussis, Tetanus Vaccination: Yes Vertical Provider Document - CONSTITUTIONAL Agree With Documented VS: Yes Notes: GENERAL: Alert, interacts well. No acute distress. HEAD: Normocephalic, atraumatic. EYES: Pupils equal, round, and reactive to light. Extraocular movements intact. ENT: Oral mucosa moist, tongue midline. NECK: Full range of motion. Supple. Trachea midline. LUNGS: Clear to auscultation bilaterally, no wheezes, rales, or rhonchi. No respiratory distress. HEART: Regular rate and rhythm. No murmur ABDOMEN: Soft, non-tender. Non-distended. Bowel sounds present in all 4 quadrants. EXTREMITIES: Moves all 4 extremities spontaneously. No edema, normal radial and dorsalis pedis pulses bilaterally. No cyanosis. BACK: no cervical, thoracic, lumbar midline tenderness. No saddle anesthesia, normal distal neurovascular exam. NEUROLOGICAL: Alert and oriented x3. Normal speech. cranial nerves II through XII grossly intact PSYCH: Normal affect, normal mood. SKIN: Warm, dry, normal turgor. Redness noted right great toe medially near nailbed radiating down to MCP joint. Capillary refill less than 2 seconds distally right great toe. No obvious signs of paronychia noted - INFECTION CONTROL TRAVEL OUTSIDE OF THE [place] IN LAST 30 DAYS: No Course - Re-evaluation Re-evalutation: 01/11/19 23:50 No specific signs of paronychia noted. The skin does appear to be cellulitic. Patient has no history of gout. We will treat as cellulitis. Discharge - Discharge Clinical Impression: Cellulitis Qualifiers: Site of cellulitis: extremity Site of cellulitis of extremity: toe Laterality: right Qualified Code(s): L03.031 - Cellulitis of right toe Condition: Stable Disposition: HOME, SELF-CARE Instructions: Cellulitis ([facility]) Additional Instructions: As we discussed you have been seen and treated in the emergency department for cellulitis to your right toe. This is an infection of the skin around your right toe. Please take antibiotics as prescribed. Please also soak your right great toe in warm water and Epson salt at least 3 times a day. This will help with the infection. Please follow-up with your primary care provider in the next 24 to 48 hours. Return to the emergency room for any concerns. Prescriptions: Sulfamethoxazole/Trimethoprim [Bactrim Ds Tablet] 1 each PO BID 7 Days #14 tablet Cephalexin Monohydrate [Keflex 500 mg Capsule] 500 mg PO BID 7 Days #14 capsule Referrals: [facility] [[facility]] - Follow up as needed
== END 2019-01-12 | disposition home or self-care (01) ==
LOC: ER 23:30
DX: L03.031 Cellulitis of right toe (principal); M79.674 Pain in right toe(s); F17.200 Nicotine dependence, unspecified, uncomplicated
CPT/HCPCS: 99283

== ENCOUNTER 2019-03-18 17:41 | Emergency (ER) | payer OTHER ==
[2019-03-18 18:03] VITALS: BP 132/76
--- NOTE | 2019-03-18 18:50 | ER Document Report ---
HPI - HPI Time Seen by Provider: 03/18/19 18:43 Pain Level: Denies Notes: Patient is a 58-year-old male no significant past medical history who presents to have his glucose evaluated. Patient had his blood drawn about a month ago and his family provider had trouble getting hold him as it was in the 40s. They were finally able to get a hold of him and he came here for evaluation. Patient states that he has not been feeling any different and has been able to eat and drink without difficulty. He is urinating normally and having normal bowel movements. Patient was unaware of any symptoms at the time when he had a sugar in the 40s. Denies drug allergies. No other concerns or complaints. Denies any headache, fever, neck pain, changes in vision/speech/mentation/hearing, URI, sore throat, chest pain, palpitations, syncope, cough, shortness of breath, wheeze, dyspnea, abdominal pain, nausea/vomiting/diarrhea, urinary retention, dysuria, hematuria, or rash. - ROS Systems Reviewed and Negative: Yes All other systems reviewed and negative Past Medical History - Social History Smoking Status: Current Every Day Smoker Frequency of alcohol use: Occasional Drug Abuse: Marijuana Family History: Reviewed & Not Pertinent Patient has suicidal ideation: No Patient has homicidal ideation: No Renal/ Medical History: Denies: Hx Peritoneal Dialysis Psychiatric Medical History: Reports: Hx Anxiety, Hx Bipolar Disorder, Hx Depression Past Surgical History: Reports: Hx Orthopedic Surgery - left wrist, Hx Tonsillectomy - Immunizations Hx Diphtheria, Pertussis, Tetanus Vaccination: Yes Vertical Provider Document - CONSTITUTIONAL Agree With Documented VS: Yes Notes: PHYSICAL EXAMINATION: GENERAL: Well-appearing, well-nourished and in no acute distress. A&Ox4. Answers questions appropriately. HEAD: Atraumatic, normocephalic. EYES: Pupils equal round and reactive to light, extraocular movements intact, sclera anicteric, conjunctiva are normal. ENT: Nares patent and without discharge. oropharynx clear without exudates. No tonsilar hypertrophy or erythema. Moist mucous membranes. NECK: Normal range of motion, supple without lymphadenopathy LUNGS: Breath sounds clear to auscultation bilaterally and equal. No wheezes rales or rhonchi. HEART: Regular rate and rhythm without murmurs, rubs, gallops. ABDOMEN: Soft, nontender, nondistended abdomen. No guarding, no rebound. Normal bowel sounds present. Musculoskeletal: FROM to passive/active. Strength 5+/5. Extremities: No cyanosis, clubbing, or edema b/l. Peripheral pulses 2+. Capillary refill less than 3 seconds. NEUROLOGICAL: Cranial nerves grossly intact. Normal speech, normal gait. PSYCH: Normal mood, normal affect. SKIN: Warm, Dry, normal turgor, no rashes or lesions noted. - INFECTION CONTROL TRAVEL OUTSIDE OF THE [place] IN LAST 30 DAYS: No Course - Re-evaluation Re-evalutation: 03/18/19 18:54 Patient is an afebrile, well-hydrated, 58-year-old male who presents for a worried well visit. Vitals acceptable without significant tachycardia, tachypnea, hypoxia. PE is otherwise unremarkable. Patient is nontoxic-appeari ng and is tolerating p.o. without difficulty. Accu-Chek was 108 today. His initial lab that they wanted him seen for was performed almost a month ago per patient. No further work-up warranted. Low suspicion for any other systemic or emergent condition at this time. Patient does agree evaluate with his family provider this next week. Return to the ED with any other worsening/concerning symptoms. Patient is in agreement. - Vital Signs Vital signs: Temp Pulse Resp BP Pulse Ox 98.3 F 99 132/76 H 98 03/18/19 18:02 03/18/19 18:02 03/18/19 18:02 03/18/19 18:02 Discharge - Discharge Clinical Impression: Worried well Condition: Stable Disposition: HOME, SELF-CARE Additional Instructions: Maintain adequate fluid and food intake Healthy diet Make sure you are staying hydrated enough to urinate and have normal BM's Recheck with your PCM in 3-5 days Consider consult with Gastroenterology for ongoing/worsening symptoms Return to the ED with any worsening symptoms and/or development of fever, headache, chest pain, palpitations, syncope, shortness of breath, trouble breathing, abdominal pain, n/v/d, blood in stool/urine, weakness, or other worsening symptoms that are concerning to you. Forms: Elevated Blood Pressure, Smoking Cessation Education Referrals: [facility] [[facility]] - Follow up as needed
== END 2019-03-18 19:05 | disposition home or self-care (01) ==
LOC: ER 17:41
DX: Z71.1 Person with feared health complaint in whom no diagnosis is made (principal); E16.2 Hypoglycemia, unspecified
CPT/HCPCS: 82962; 99283

== ENCOUNTER 2019-06-27 22:10 | Emergency (ER) | payer OTHER ==
--- NOTE | 2019-06-27 22:54 | ER Document Report ---
ED Medical Screen (RME) - General Chief Complaint: Chest Congestion Stated Complaint: CONGESTION Time Seen by Provider: 06/27/19 22:47 Primary Care Provider: [facility] [Primary Care Provider] - Follow up as needed Mode of Arrival: Ambulatory Information source: Patient Notes: 59-year-old male with history of bipolar depression mood disorder positive smoker presents to the emergency department with complaints of feeling short of breath when he lays down at night to go to sleep. Reports is happened 2 nights ago. Reports he has a lot of phlegm in his throat he wakes up choking he reports he almost called the ambulance because of this. Denies history of cardiac disease. Denies fever vomiting diarrhea. Did not receive the flu vaccine. Denies exposure to any coronavirus. I have greeted and performed a rapid initial assessment of this patient. A comprehensive ED assessment and evaluation of the patient, analysis of test results and completion of the medical decision making process will be conducted by additional ED providers. TRAVEL OUTSIDE OF THE [place] IN LAST 30 DAYS: No - Related Data Allergies/Adverse Reactions: No Known Allergies Allergy (Verified 10/17/18 08:27) Past Medical History Renal/ Medical History: Denies: Hx Peritoneal Dialysis Psychiatric Medical History: Reports: Hx Anxiety, Hx Bipolar Disorder, Hx Depression Past Surgical History: Reports: Hx Orthopedic Surgery - left wrist, Hx Tonsillectomy - Immunizations Hx Diphtheria, Pertussis, Tetanus Vaccination: Yes Physical Exam - Vital signs Vitals: Temp Pulse Resp BP Pulse Ox 98.2 F 92 18 130/83 H 94 06/27/19 22:26 06/27/19 22:26 06/27/19 22:26 06/27/19 22:26 06/27/19 22:26 Course - Vital Signs Vital signs: Temp Pulse Resp BP Pulse Ox 98.2 F 92 18 130/83 H 94 06/27/19 22:26 06/27/19 22:26 06/27/19 22:26 06/27/19 22:26 06/27/19 22:26 Doctor's Discharge - Discharge [facility]errals: [facility] [[facility]] - Follow up as needed
--- NOTE | 2019-06-27 23:25 | RADIOLOGY REPORT (SQ) ---
EXAM DESCRIPTION: X-RAY CHEST- One View CLINICAL HISTORY: Shortness of breath COMPARISON: July 19, 2018 TECHNIQUE: Single view of the chest. FINDINGS: There are no discrete air space infiltrates, pneumothoraces or pleural effusions. The pulmonary vascularity is normal. The cardiomediastinal silhouette is normal in size. Osseous structures are stable in appearance. IMPRESSION: There are no acute lung parenchymal findings.
[2019-06-28 00:10] LABS: APPEARANCE,URINE CLEAR; BILIRUBIN,URINE NEGATIVE (NEGATIVE); COLOR,URINE YELLOW; GLUCOSE, URINE NEGATIVE (NEGATIVE); KETONES,URINE NEGATIVE (NEGATIVE); LEUKOCYTE ESTERASE,URINE NEGATIVE (NEGATIVE); NITRITE,URINE NEGATIVE (NEGATIVE); PROTEIN,URINE NEGATIVE (NEGATIVE); URINE SPECIFIC GRAVITY 1.018; UROBILINOGEN,URINE NEGATIVE mg/dL (<2.0)
[2019-06-28 00:25] LABS: URINE AMPHETAMINES SCREEN NEGATIVE; URINE BARBITURATES SCREEN NEGATIVE; URINE BENZODIAZEPINES SCREEN NEGATIVE; URINE COCAINE SCREEN NEGATIVE; URINE METHADONE SCREEN NEGATIVE; URINE PHENCYCLIDINE SCREEN NEGATIVE
[2019-06-28 00:26] LABS: URINE MARIJUANA (THC) SCREEN UNCONFIRMED POSITIVE
[2019-06-28 01:10] LABS: ABSOLUTE BASOPHILS # (AUTO) 0.1 10^3/uL (0.0-0.2); ABSOLUTE EOSINOPHILS # (AUTO) 0.4 10^3/uL (0.0-0.6); ABSOLUTE LYMPHOCYTES (AUTO) 3.1 10^3/uL (0.5-4.7); ABSOLUTE MONOCYTES (AUTO) 0.9 10^3/uL (0.1-1.4); ABSOLUTE NEUT (AUTO) 7.1 10^3/uL (1.7-8.2); BASOPHILS % (AUTO) 0.7 % (0-2); EOSINOPHILS % (AUTO) 3.3 % (0-6); HEMATOCRIT 47.2 % (37.9-51.0); HEMOGLOBIN 16.1 g/dL (13.5-17.0); LYMPHOCYTES % (AUTO) 26.8 % (13-45); MEAN CORPUSCULAR HEMOGLOBIN 30.5 pg (27.0-33.4); MEAN CORPUSCULAR HGB CONC 34.2 g/dL (32.0-36.0); MEAN CORPUSCULAR VOLUME 89 fl (80-97); MONOCYTES % (AUTO) 8.1 % (3-13); PLATELET COUNT 383 10^3/uL (150-450); RED BLOOD COUNT 5.29 10^6/uL (4.35-5.55); RED CELL DISTRIBUTION WIDTH 14.3 % (11.5-14.0); SEGMENTED NEUTROPHILS % (AUTO) 61.1 % (42-78); TOTAL CELLS COUNTED % (AUTO) 100 %; WHITE BLOOD COUNT 11.6 10^3/uL (4.0-10.5)
[2019-06-28 01:33] LABS: ALBUMIN 3.9 g/dL (3.5-5.0); ALKALINE PHOSPHATASE 66 U/L (38-126); ANION GAP 5 (5-19); ASPARTATE AMINO TRANSFERASE 24 U/L (17-59); BILIRUBIN,TOTAL 0.3 mg/dL (0.2-1.3); BLOOD UREA NITROGEN 31 mg/dL (7-20); CALCIUM 9.2 mg/dL (8.4-10.2); CARBON DIOXIDE 28 mmol/L (22-30); CHLORIDE 106 mmol/L (98-107); GLUCOSE 83 mg/dL (75-110); POTASSIUM 5.2 mmol/L (3.6-5.0); TOTAL PROTEIN 6.2 g/dL (6.3-8.2)
--- NOTE | 2019-06-28 02:34 | ER Document Report ---
HPI - HPI Time Seen by Provider: 06/27/19 22:47 Pain Level: Denies Notes: Patient is a 59-year-old male with history of tobacco abuse presents complaining having an occasional cough that is been developing over the past 1 to 2 days with mild production that is clear. Patient states that 2 nights ago he woke up with phlegm in his throat and had a cough it out. Patient states that he had a hard time breathing when the phlegm in his throat until he coughed it out and then he felt fine. He otherwise has not had any other recent illness. Denies drug allergies. He is able to eat and drink without difficulty. He is urinating normally and having normal bowel movements. Denies any headache, fever, neck pain, URI, sore throat, chest pain, palpitations, syncope, shortness of breath, wheeze, dyspnea, abdominal pain, nausea/vomiting/diarrhea, urinary retention, dysuria, hematuria, or rash. - ROS Systems Reviewed and Negative: Yes All other systems reviewed and negative - REPRODUCTIVE Reproductive: DENIES: : Past Medical History - General Information source: Patient - Social History Smoking Status: Current Every Day Smoker Family History: Reviewed & Not Pertinent Patient has suicidal ideation: No Patient has homicidal ideation: No Renal/ Medical History: Denies: Hx Peritoneal Dialysis Psychiatric Medical History: Reports: Hx Anxiety, Hx Bipolar Disorder, Hx Depression Past Surgical History: Reports: Hx Orthopedic Surgery - left wrist, Hx Tonsillectomy - Immunizations Hx Diphtheria, Pertussis, Tetanus Vaccination: Yes Vertical Provider Document - CONSTITUTIONAL Agree With Documented VS: Yes Notes: PHYSICAL EXAMINATION: GENERAL: Well-appearing, well-nourished and in no acute distress. HEAD: Atraumatic, normocephalic. EYES: Pupils equal round and reactive to light, extraocular movements intact, sclera anicteric, conjunctiva are normal. ENT: Nares patent and without discharge. oropharynx clear without exudates. No tonsilar hypertrophy or erythema. Moist mucous membranes. NECK: Normal range of motion, supple without lymphadenopathy LUNGS: Breath sounds clear to auscultation bilaterally and equal. No wheezes rales or rhonchi. HEART: Regular rate and rhythm without murmurs, rubs, gallops. ABDOMEN: Soft, nontender, nondistended abdomen. No guarding, no rebound. Normal bowel sounds present. No CVA tenderness bilaterally. Musculoskeletal: FROM to passive/active. Strength 5+/5. Lisa neg. No asymmetry to LE's. Extremities: No cyanosis, clubbing, or edema b/l. Peripheral pulses 2+. Capillary refill less than 3 seconds. NEUROLOGICAL: Normal speech, normal gait. PSYCH: Normal mood, normal affect. SKIN: Warm, Dry, normal turgor, no rashes or lesions noted. - INFECTION CONTROL TRAVEL OUTSIDE OF THE [place] IN LAST 30 DAYS: No Course - Re-evaluation Re-evalutation: 06/28/19 02:[address] Lr who is in agreement with dispo/plan: Patient is an afebrile, well-hydrated 59-year-old male who presents to the ED with cough, suspect mild acute bronchitis/viral. Vitals are acceptable without any significant tachycardia, tachypnea, or hypoxia. PE is otherwise unremarkable. Lungs are CTAB. Patient is nontoxic-appearing and is tolerating p.o. without any difficulties. CBC, CMP, EKG, BNP, chest x-ray are all unremarkable for any acute pathology. Pt is Wells negative. Patient does not have any chest pain, dyspnea, or shortness of breath. Patient's presentation and symptomatology creates low suspicion for ACS, PE, pneumothorax, pericarditis, dissection, respiratory compromise, severe dehydration, sepsis, meningitis, or other systemic emergent condition at this time. Patient is aware that his condition can change from initial presentation and he needs to monitor symptoms closely and seek medical attention for any acute changes. Recommend conservative measures for symptoms. Recheck with your PCM in 2-3 days. Consider consult with Cardiology. Return to the ED with any worsening/concerning symptoms otherwise as reviewed in discharge. Patient is in agreement. - Vital Signs Vital signs: Temp Pulse Resp BP Pulse Ox 98.2 F 92 18 130/83 H 94 06/27/19 22:26 06/27/19 22:26 06/27/19 22:26 06/27/19 22:26 06/27/19 22:26 - Laboratory Result Diagrams: 06/28/19 01:00 06/28/19 01:00 Laboratory results interpreted by me: 06/28/19 06/28/19 01:00 01:00 WBC 11.6 H RDW 14.3 H Potassium 5.2 H BUN 31 H Total Protein 6.2 L Discharge - Discharge Clinical Impression: Cough Condition: Stable Disposition: HOME, SELF-CARE Additional Instructions: Maintain adequate fluid intake tylenol/ibuprofen as needed over the counter cold medication as needed for symptoms (i.e. zyrtec/mucinex) Humidified air may help Wash your hands regularly Wear a mask when coughing F/u: with your PCM in 3-5 days for a recheck Return to the ED with any fever, altered mental status/behavior, chest pain, palpitations, syncope, headache, neck pain/stiffness, shortness of breath, chest pains, wheezing, drooling, trouble swallowing/breathing, abdominal pain, n/v/d, rash, or worsening/concerning symptoms otherwise. Forms: Elevated Blood Pressure, Smoking Cessation Education [facility]errals: [facility] [Primary Care [facility]] - Follow up as needed
[2019-06-28 03:37] VITALS: BP 125/89
--- NOTE | 2019-06-28 11:20 | EKG REPORT ---
SEVERITY:- NORMAL ECG - SINUS RHYTHM : Confirmed by: Alisa Jacobs MD 28-Jun-2019 11:19:58
== END 2019-06-28 03:46 | disposition home or self-care (01) ==
LOC: ER 22:10
DX: R05 Cough (principal); F17.200 Nicotine dependence, unspecified, uncomplicated
CPT/HCPCS: 36415; 71046; 80053; 80307; 81001; 83880; 85025; 93005; 93010; 99284

== ENCOUNTER 2019-11-07 20:08 | Emergency (ER) | payer OTHER | END 2019-11-07 21:30 | disposition left against medical advice (07) | LOC: ER 20:08 | DX: Z53.21 Procedure and treatment not carried out due to patient leaving prior to being seen by health care provider (principal) ==

== ENCOUNTER 2019-12-08 14:04 | Emergency (ER) | payer OTHER ==
--- NOTE | 2019-12-08 15:20 | ER Document Report ---
ED General - General Chief Complaint: General Weakness Stated Complaint: WEAKNESS,CHILLS Primary Care Provider: [facility] [[facility]] - Follow up as needed Notes: Patient is a 59-year-old white male with a history of psychiatric disorder on lithium, recently diagnosed brain tumor under the care of neurosurgery at [facility] who presents today with a chief complaint of chills and cough. He reports the chills began last night. States they are random and unassociated with any other symptoms. He states this morning he started having an infrequent dry cough. He states the symptoms feels like there is a little mucus in the back of the throat. He denies any hemoptysis. He is a every day smoker of 1 pack/day since he was 15 years old. He was recently discharged on a new medication Keppra to help prevent seizure in the presence of new brain mass. Patient denies any recent travel or known sick contacts. Denies any fever, nausea vomiting, diarrhea. No chest pain or shortness of breath. TRAVEL OUTSIDE OF THE [place] IN LAST 30 DAYS: No - Related Data Allergies/Adverse Reactions: No Known Allergies Allergy (Verified 10/17/18 08:27) Home Medications: [place], 3 others unknown Past Medical History - Social History Smoking Status: Current Every Day Smoker Frequency of alcohol use: Occasional Drug Abuse: Marijuana Family History: Reviewed & Not Pertinent Renal/ Medical History: Denies: Hx Peritoneal Dialysis Psychiatric Medical History: Reports: Hx Anxiety, Hx Bipolar Disorder, Hx Depression Past Surgical History: Reports: Hx Orthopedic Surgery - left wrist, Hx Tonsillectomy - Immunizations Hx Diphtheria, Pertussis, Tetanus Vaccination: Yes Review of Systems - Review of Systems Constitutional: denies: Fever EENT: denies: Throat pain Cardiovascular: denies: Lightheaded Respiratory: denies: Short of breath Gastrointestinal: denies: Abdominal pain Genitourinary: denies: Pain Male Genitourinary: denies: Testicular pain Musculoskeletal: denies: Joint swelling Skin: denies: Change in color Hematologic/Lymphatic: denies: Easy bruising Neurological/Psychological: denies: Lost consciousness Physical Exam - Vital signs Vitals: Temp 99.8 F 12/08/19 14:05 - General General appearance: Appears well, Alert In distress: None - HEENT Head: Normocephalic, Atraumatic Eyes: Other - Photophobia Conjunctiva: Normal Extraocular movements intact: Yes Mucous membranes: Moist Pharynx: Normal Neck: Normal, Supple - Respiratory Respiratory status: No respiratory distress Chest status: Nontender Breath sounds: Normal Chest palpation: Normal - Cardiovascular Rhythm: Regular Heart sounds: Normal auscultation - Neurological Neuro grossly intact: Yes Cognition: Normal Orientation: AAOx4 - Psychological Associated symptoms: Normal affect, Normal mood - Skin Skin Temperature: Warm Skin Moisture: Dry Skin Color: Normal Course - Re-evaluation Re-evalutation: 12/08/19 17:14 CT scan negative for acute process per radiologist. Laboratory studies showing a slight left shift otherwise largely unremarkable. Patient reports frontal headache, requested some ibuprofen or Tylenol. Ibuprofen was ordered. He reports this is typical with the brain tumor. He is awaiting neurosurgical management in [facility]. He was slightly tachycardic upon init ial vitals. Repeat heart rate around 1 10-1 11. We will give some IV fluids and reevaluate. 12/08/19 17:14 12/08/19 18:44 After some IV normal saline the patient's pulse improved to 99-1 02 on average. Patient still feels well. He was given a ibuprofen for his episodic headaches related to the brain tumor. He is got a nonfocal exam here. No acute findings on work-up to explain this cough as described above. Patient will be referred to follow-up with his primary doctor and advised to continue follow-up with neurosurgery regarding the brain tumor. Advised to return here or any ER immedi ately with any new, persistent or worsening symptoms. He verbalized understood and agreed. - Vital Signs Vital signs: Temp Pulse Resp BP Pulse Ox 99.8 F 112 H 16 134/84 H 98 12/08/19 14:10 12/08/19 14:10 12/08/19 14:10 12/08/19 14:10 12/08/19 14:10 - Laboratory Result Diagrams: 12/08/19 15:39 12/08/19 15:39 Laboratory results interpreted by me: 12/08/19 12/08/19 15:39 15:39 RDW 14.3 H Lymph % (Auto) 10.6 L Seg Neutrophils % 83.0 H Sodium 134.2 L Total Protein 5.6 L Discharge - Discharge Clinical Impression: Cough, Chills, History of brain tumor Condition: Stable Disposition: HOME, SELF-CARE Instructions: Cough Suppressant & Expectorant Medications Additional Instructions: Please follow-up with your primary doctor for reevaluation of the cough and your intermittent chills. Please continue to seek follow-up with the neuro surgeon/brain doctor in [facility] as previously scheduled and discussed. Please return here or any ER immediately with any new, persistent or worsening symptoms. Referrals: [facility] [Primary Care [facility]] - Follow up as needed
[2019-12-08 15:48] LABS: ABSOLUTE LYMPHOCYTES (AUTO) 0.9 10^3/uL (0.5-4.7); ABSOLUTE MONOCYTES (AUTO) 0.5 10^3/uL (0.1-1.4); ABSOLUTE NEUT (AUTO) 6.9 10^3/uL (1.7-8.2); BASOPHILS % (AUTO) 0.3 % (0-2); HEMATOCRIT 46.3 % (37.9-51.0); HEMOGLOBIN 15.9 g/dL (13.5-17.0); LYMPHOCYTES % (AUTO) 10.6 % (13-45); MEAN CORPUSCULAR HEMOGLOBIN 30.2 pg (27.0-33.4); MEAN CORPUSCULAR HGB CONC 34.3 g/dL (32.0-36.0); MEAN CORPUSCULAR VOLUME 88 fl (80-97); MONOCYTES % (AUTO) 6.1 % (3-13); PLATELET COUNT 261 10^3/uL (150-450); RED BLOOD COUNT 5.26 10^6/uL (4.35-5.55); RED CELL DISTRIBUTION WIDTH 14.3 % (11.5-14.0); TOTAL CELLS COUNTED % (AUTO) 100 %; WHITE BLOOD COUNT 8.3 10^3/uL (4.0-10.5)
[2019-12-08 16:03] LABS: ALBUMIN 3.5 g/dL (3.5-5.0); ALKALINE PHOSPHATASE 62 U/L (38-126); ANION GAP 7 (5-19); ASPARTATE AMINO TRANSFERASE 20 U/L (17-59); BILIRUBIN,DIRECT 0.3 mg/dL (0.0-0.4); BILIRUBIN,TOTAL 0.4 mg/dL (0.2-1.3); BLOOD UREA NITROGEN 17 mg/dL (7-20); CALCIUM 8.7 mg/dL (8.4-10.2); CARBON DIOXIDE 24 mmol/L (22-30); CHLORIDE 103 mmol/L (98-107); GLUCOSE 97 mg/dL (75-110); POTASSIUM 4.5 mmol/L (3.6-5.0); TOTAL PROTEIN 5.6 g/dL (6.3-8.2)
[2019-12-08] MEDS ORDERED: IBUPROFEN 800 MG TABLET PO ONE (16:39)
--- NOTE | 2019-12-08 17:02 | RADIOLOGY REPORT (SQ) ---
EXAM DESCRIPTION: CT CHEST WITH IMAGES COMPLETED DATE/TIME: 12/08/2019 4:43 pm REASON FOR STUDY: cough chills, new hx of brain mass COMPARISON: None. TECHNIQUE: CT scan of the chest performed using helical scanning technique with dynamic intravenous contrast injection. Images reviewed with lung, soft tissue and bone windows. Reconstructed coronal and sagittal MPR and MIP images reviewed. All images stored on PACS. All CT scanners at this facility use dose modulation, iterative reconstruction, and/or weight based d osing when appropriate to reduce radiation dose to as low as reasonably achievable (ALARA). [facility]: Dose Right [facility]: CareDose [facility]: Dose Right [facility]: Teradose 4D [facility]: NovaSom CONTRAST TYPE AND DOSE: contrast/concentration: Isovue 350.00 mmol/ml; Total Contrast Delivered: 80. 0 ml; Total Saline Delivered: 55.0 ml RENAL FUNCTION: Not recorded here. Refer to the technologist's notes. RADIATION DOSE: CT Rad equipment meets quality standard of care and radiation dose reduction techniq ues were employed. CTDIvol: 8.1 mGy. DLP: 338 mGy-cm. . LIMITATIONS: None. FINDINGS: LUNGS AND PLEURA: Mild dependent atelectasis in the lung bases. No acute pulmonary infilt rate or effusion. No mass. HILAR AND MEDIASTINAL STRUCTURES: No masses or adenopathy. HEART AND VASCULAR STRUCTURES: No aneurysm or dissection. No central pulmonary emboli. Minimal leah cardial effusion. HARDWARE: None in the chest. UPPER ABDOMEN: No significant findings. Limited exam. THYROID AND OTHER SOFT TISSUES: No masses. No adenopathy. BONES: No significant finding. OTHER: No other significant finding. IMPRESSION: No acute cardiopulmonary findings. TECHNICAL DOCUMENTATION: JOB ID: [id number] Quality ID # [id number]: Final reports with documentation of one or more dose reduction techniques (e.g., Au tomated exposure control, adjustment of the mA and/or kV according to patient size, use of iterative reconstruction technique) 2010 [employer]- All Rights Reserved Reading location - IP/workstation name: [email or web address]
[2019-12-08] MEDS ORDERED: NORMAL SALINE 1000 ML 1,000 ML IV ONE (17:14)
[2019-12-08 19:05] VITALS: BP 120/77
== END 2019-12-08 19:05 | disposition home or self-care (01) ==
LOC: ER 14:04
DX: R05 Cough (principal); R68.83 Chills (without fever); D49.6 Neoplasm of unspecified behavior of brain; H53.149 Visual discomfort, unspecified; R51 Headache; F17.200 Nicotine dependence, unspecified, uncomplicated; F12.10 Cannabis abuse, uncomplicated; F31.9 Bipolar disorder, unspecified; Z79.899 Other long term (current) drug therapy
CPT/HCPCS: 99285; 96361; 36415; 85025; 80053; 71260; J7030

== ENCOUNTER 2019-12-12 21:11 | Emergency (ER) | payer OTHER ==
--- NOTE | 2019-12-12 22:19 | ER Document Report ---
ED Medical Screen (RME) - General Chief Complaint: Headache Stated Complaint: CHILLS,HEADACHES Time Seen by Provider: 12/12/19 22:10 Primary Care Provider: NAVI,MICHAELA [Primary Care Provider] - Follow up as needed Mode of Arrival: Ambulatory Information source: Patient Notes: HPI; 59-year-old male presents emergency room complaining of ringing in his ears, worsening feelings of being off balance, and chills that have been persistent for the past several weeks. Patient was diagnosed the end of October with a brain tumor. Patient states he still waiting to see a neurosurgeon at [facility] the [place] has not been able to process the request for transportation to get him there. Has been seen here multiple times for similar symptoms. States the symptoms are getting progressively worse and he was not sure what to do today states he has persistent headaches, denies any nausea, vomiting, denies any recent travel. Denies any COVID-19 exposure. PE: Alert and oriented x3. Mild distress noted. Lungs: Clear to auscultation without rales, rhonchi, wheezes. Heart: Regular rate and rhythm without murmurs, rubs, gallops. I have greeted and performed a rapid initial assessment of this patient. A comprehensive ED assessment and evaluation of the patient, analysis of test results and completion of the medical decision making process will be conducted by additional ED providers. I have specifically instructed the patient or family members with the patient to immediately return to any nursing staff should anything change in the patient's condition or with their chief complaint. TRAVEL OUTSIDE OF THE [place] IN LAST 30 DAYS: No - Related Data Allergies/Adverse Reactions: No Known Allergies Allergy (Verified 10/17/18 08:27) Past Medical History - Social History Frequency of alcohol use: None Drug Abuse: None Renal/ Medical History: Denies: Hx Peritoneal Dialysis Psychiatric Medical History: Reports: Hx Anxiety, Hx Bipolar Disorder, Hx Depre ssion Past Surgical History: Reports: Hx Orthopedic Surgery - left wrist, Hx Tonsillectomy - Immunizations Hx Diphtheria, Pertussis, Tetanus Vaccination: Yes Physical Exam - Vital signs Vitals: Temp Pulse Resp BP Pulse Ox 99.1 F 93 24 H 125/74 100 12/12/19 21:57 12/12/19 21:57 12/12/19 21:57 12/12/19 21:57 12/12/19 21:57 Course - Vital Signs Vital signs: Temp Pulse Resp BP Pulse Ox 99.1 F 93 24 H 125/74 100 12/12/19 21:57 12/12/19 21:57 12/12/19 21:57 12/12/19 21:57 12/12/19 21:57 Doctor's Discharge - Discharge Referrals: [facility] [[facility]] - Follow up as needed
[2019-12-12 23:15] LABS: ABSOLUTE EOSINOPHILS # (AUTO) 0.2 10^3/uL (0.0-0.6); ABSOLUTE LYMPHOCYTES (AUTO) 1.8 10^3/uL (0.5-4.7); ABSOLUTE MONOCYTES (AUTO) 0.8 10^3/uL (0.1-1.4); ABSOLUTE NEUT (AUTO) 3.3 10^3/uL (1.7-8.2); BASOPHILS % (AUTO) 0.5 % (0-2); EOSINOPHILS % (AUTO) 3.8 % (0-6); HEMATOCRIT 43.3 % (37.9-51.0); HEMOGLOBIN 14.7 g/dL (13.5-17.0); LYMPHOCYTES % (AUTO) 29.1 % (13-45); MEAN CORPUSCULAR HEMOGLOBIN 29.6 pg (27.0-33.4); MEAN CORPUSCULAR HGB CONC 34.1 g/dL (32.0-36.0); MEAN CORPUSCULAR VOLUME 87 fl (80-97); MONOCYTES % (AUTO) 12.7 % (3-13); PLATELET COUNT 329 10^3/uL (150-450); RED BLOOD COUNT 4.97 10^6/uL (4.35-5.55); RED CELL DISTRIBUTION WIDTH 14.2 % (11.5-14.0); SEGMENTED NEUTROPHILS % (AUTO) 53.9 % (42-78); TOTAL CELLS COUNTED % (AUTO) 100 %
[2019-12-12] MEDS ORDERED: ACETAMINOPHEN 325 MG TABLET PO ONE (23:22)
[2019-12-12 23:29] LABS: A TYPE INFLUENZA AG NEGATIVE (NEGATIVE); B INFLUENZA AG NEGATIVE (NEGATIVE)
[2019-12-12 23:35] LABS: ALBUMIN 3.5 g/dL (3.5-5.0); ALKALINE PHOSPHATASE 92 U/L (38-126); ANION GAP 5 (5-19); ASPARTATE AMINO TRANSFERASE 27 U/L (17-59); BILIRUBIN,DIRECT 0.3 mg/dL (0.0-0.4); BILIRUBIN,TOTAL 0.3 mg/dL (0.2-1.3); BLOOD UREA NITROGEN 23 mg/dL (7-20); CALCIUM 8.6 mg/dL (8.4-10.2); CARBON DIOXIDE 30 mmol/L (22-30); CHLORIDE 103 mmol/L (98-107); GLUCOSE 102 mg/dL (75-110); POTASSIUM 4.4 mmol/L (3.6-5.0)
--- NOTE | 2019-12-13 01:52 | ER Document Report ---
ED Headache - General Chief Complaint: Headache Stated Complaint: CHILLS,HEADACHES Time Seen by Provider: 12/12/19 22:10 Primary Care Provider: [facility] [Primary Care Provider] - Follow up as needed Mode of Arrival: Ambulatory Notes: 59-year-old male with a past medical history of bipolar and brain tumor presenting today with a headache. He was diagnosed with a brain tumor on November 10, 2019. Was instructed to follow-up with vide neurosurgery and has been unable to seek care there due to inability to get a ride to the facility. His headaches typically present along the frontal region and the resolve with ibuprofen. Headache today was occipital and started this afternoon. He took ibuprofen which decreased the pain. He had concerns because of the location of the headache. He denies any stroke like symptoms. Has no neurological deficits. Has nausea in the morning when he eats. Has not had nausea since this morning. Denies any chest pain. This is not the worst headache of his life. No thunderclap headache. No vision changes. No blurriness. No dizziness. No weakness. TRAVEL OUTSIDE OF THE [place] IN LAST 30 DAYS: No - HPI Patient reports: Brain neoplasm - Related Data Allergies/Adverse Reactions: No Known Allergies Allergy (Verified 10/17/18 08:27) Past Medical History - General Information source: Patient - Social History Smoking Status: Current Every Day Smoker Frequency of alcohol use: None Drug Abuse: None Family History: Reviewed & Not Pertinent Patient has homicidal ideation: No - Past Medical History Cardiac Medical History: Reports: None Pulmonary Medical History: Reports: None EENT Medical History: Reports: None Neurological Medical History: Reports: None Endocrine Medical History: Reports: None Renal/ Medical History: Reports: None. Denies: Hx Peritoneal Dialysis Musculoskeletal Medical History: Reports None Psychiatric Medical History: Reports: Hx Anxiety, Hx Bipolar Disorder, Hx Depression Past Surgical History: Reports: Hx Orthopedic Surgery - left wrist, Hx Tonsillectomy - Immunizations Hx Diphtheria, Pertussis, Tetanus Vaccination: Yes Review of Systems - Review of Systems Constitutional: No symptoms reported EENT: No symptoms reported Cardiovascular: No symptoms reported Respiratory: No symptoms reported Gastrointestinal: No symptoms reported Genitourinary: No symptoms reported Male Genitourinary: No symptoms reported Musculoskeletal: No symptoms reported Skin: No symptoms reported Hematologic/Lymphatic: No symptoms reported Neurological/Psychological: See HPI Physical Exam - Vital signs Vitals: Temp Pulse Resp BP Pulse Ox 99.1 F 93 24 H 125/74 100 12/12/19 21:57 12/12/19 21:57 12/12/19 21:57 12/12/19 21:57 12/12/19 21:57 Interpretation: Tachypneic - Notes Notes: Adult General: GENERAL: Alert, interacts well. No acute distress HEAD: Normocephalic, atraumatic EYES: Pupils equal, round and reactive to light. Extraocular movements intact. ENT: Oral mucosa moist, tongue midline. Oropharynx unremarkable. Airway patent. Nares patent, sinuses nontender, ear canals unremarkable, TMs intact. No Trismus. NECK: Full range of motion. Supple. Trachea midline. No lymphadenopathy. LUNGS: Clear to auscultation bilaterally, no wheezes, rales, or rhonchi. No respiratory distress. Nontender chest wall. HEART: Regular rate and rhythm. No murmurs, rubs or gallops. ABDOMEN: Soft, nontender. Nondistended. GENITOURINARY: Deferred EXTREMITIES: Moves all 4 extremities spontaneously. No edema, normal radial and dorsal pedis pulses bilaterally. No cyanosis. BACK: No cervical, thoracic, lumbar midline tenderness. No saddle anesthesia, normal distal neurovascular exam. Moves all extremities with full range of motion. NEUROLOGICAL: Alert and oriented x3. Normal speech. Cranial nerves II through XII grossly intact. Strength 5/ 5 in all extremities. PSYCH: Normal affect, normal mood. SKIN: Warm, dry, normal turgor. No rashes or lesions noted. Course - Re-evaluation Re-evalutation: 12/13/19 07:55 I discussed this patient's case with Dr. Giron who recommends repeat imaging via CT scan instead of MRI. Further review of patient's chart shows that he likely has a glioblastoma. CT scan shows unchangedleft frontal lobe edema compared to last CT scan was performed on November 09. Patient's neurological exam is benign, he has no neurological deficits. Has no stroke like symptoms. He denies any headaches at this time. He expresses continued concern about inability to get a ride to [facility] and he has tried multiple avenues in order to see a neurosurgeon. I discussed with patient that I have placed a pediatric social worker consult to cupola melter helper him in getting transportation. As his CT scan shows continued edema he was provided an additional dose of dexamethasone. I discussed at length the importance of seeing a neurosurgeon for his symptoms and findings in the urgency behind this. I also discussed he can continue to use ibuprofen and tylenol for any headaches as well as return precautions to the emergency department. I also recommend he consult with his primary care provider to see if they can aid in getting him seen by a neurosurgeon. Patient acknowledges and verbalizes understanding of instructions and plan. All questions answered. - Vital Signs Vital signs: Temp Pulse Resp BP Pulse Ox 97.5 F 82 14 122/74 97 12/13/19 03:55 12/13/19 03:55 12/13/19 03:55 12/13/19 03:55 12/13/19 03:55 - Laboratory Result Diagrams: 12/12/19 23:03 12/12/19 23:03 Laboratory results interpreted by me: 12/12/19 12/12/19 23:03 23:03 RDW 14.2 H BUN 23 H Total Protein 6.0 L Discharge - Discharge Clinical Impression: Mass, brain Headache Qualifiers: Headache type: unspecified Headache chronicity pattern: chronic headache Intractability: not intractable Qualified Code(s): R51 - Headache Condition: Stable Disposition: HOME, SELF-CARE Instructions: Headache ([facility]) Additional Instructions: Please follow-up with a neurosurgeon for further evaluation of the brain mass. I have also placed an order for a pediatric social worker to contact you. If you do not hear from them I recommend that you contact the hospital follow-up on this. Please return to the emergency department for worsening symptoms or the development of new symptoms. [facility]errals: [facility] [Primary Care [facility]] - Follow up as needed
--- NOTE | 2019-12-13 03:22 | RADIOLOGY REPORT (SQ) ---
CLINICAL HISTORY: brown/brain tumor. creat 0.88 COMPARISON: 11/10/2019. TECHNIQUE: CT HEAD WITHOUT THEN WITH IV CONTRAST on 12/13/2019 2:00 AM CDT This exam was performed according to our departmental dose-optimization program, which includes automated exposure control, adjustment of the mA and/or kV according to patient size and/or use of iterative reconstruction technique. FINDINGS: There is edema within the medial anterior left frontal lobe. There is no associated abnormal enhancement. Rosario-white differentiation is preserved. There is no hydrocephalus. There is no significant volume loss for age. The calvarium is intact. Orbits and globes are unremarkable. The paranasal sinuses are clear. Mastoid air cells are clear. IMPRESSION: Unchanged left frontal lobe edema with no convincing underlying abnormal enhancement/mass.
[2019-12-13 03:57] VITALS: BP 122/74
[2019-12-13] MEDS ORDERED: DEXAMETHASONE SOD PHOS INJ 10 MG/1 ML VIAL IM ONE (04:42)
[2019-12-13] MEDS ORDERED: DEXAMETHASONE SOD PHOS INJ 10 MG/1 ML VIAL IV ONE (04:45)
== END 2019-12-13 05:11 | disposition home or self-care (01) ==
LOC: ER 21:11
DX: G93.89 Other specified disorders of brain (principal); R51 Headache; F17.200 Nicotine dependence, unspecified, uncomplicated
CPT/HCPCS: 99285; 36415; 85025; 80053; 87804; 70470; J1100

== ENCOUNTER 2019-12-26 21:31 | Emergency (ER) | payer OTHER ==
--- NOTE | 2019-12-26 23:24 | ER Document Report ---
ED Medical Screen (RME) - General Chief Complaint: Headache <24 hrs old Stated Complaint: HEADACHE Time Seen by Provider: 12/26/19 23:16 Primary Care Provider: MICHAELA MCELROY [Primary Care Provider] - Follow up as needed Notes: Patient is a 59-year-old male who presents emergency department with a chief complaint of a headache. Patient states that he has a tumor in his head. He states that he is waiting will [facility] Patient states that his headache started today. He took an aspirin, which helped a little bit, but continues to have pain. He tried taking ibuprofen, but had relief. Denies any sinus pain. Exam: Alert and oriented. I have greeted and performed a rapid initial assessment of this patient. A comprehensive ED assessment and evaluation of the patient, analysis of test results and completion of medical decision making process will be conducted by an additional ED providers. TRAVEL OUTSIDE OF THE [place] IN LAST 30 DAYS: No - Related Data Allergies/Adverse Reactions: No Known Allergies Allergy (Verified 10/17/18 08:27) Past Medical History Renal/ Medical History: Denies: Hx Peritoneal Dialysis Psychiatric Medical History: Reports: Hx Anxiety, Hx Bipolar Disorder, Hx Depression Past Surgical History: Reports: Hx Orthopedic Surgery - left wrist, Hx Tonsillectomy - Immunizations Hx Diphtheria, Pertussis, Tetanus Vaccination: Yes Physical Exam - Vital signs Vitals: Temp Pulse Resp BP Pulse Ox 97.8 F 78 16 148/86 H 100 12/26/19 23:15 12/26/19 23:15 12/26/19 23:15 12/26/19 23:15 12/26/19 23:15 Course - Vital Signs Vital signs: Temp Pulse Resp BP Pulse Ox 97.8 F 78 16 148/86 H 100 12/26/19 23:15 12/26/19 23:15 12/26/19 23:15 12/26/19 23:15 12/26/19 23:15 Doctor's Discharge - Discharge Referrals: NAVI,MICHAELA [Primary Care Provider] - Follow up as needed
[2019-12-26] MEDS ORDERED: ACETAMINOPHEN 325 MG TABLET PO ONE (23:30)
[2019-12-27 00:35] LABS: APPEARANCE,URINE CLEAR; BILIRUBIN,URINE NEGATIVE (NEGATIVE); COLOR,URINE YELLOW; GLUCOSE, URINE NEGATIVE (NEGATIVE); KETONES,URINE NEGATIVE (NEGATIVE); LEUKOCYTE ESTERASE,URINE NEGATIVE (NEGATIVE); NITRITE,URINE NEGATIVE (NEGATIVE); PROTEIN,URINE NEGATIVE (NEGATIVE); URINE SPECIFIC GRAVITY 1.025
[2019-12-27 00:38] LABS: ABSOLUTE BASOPHILS # (AUTO) 0.1 10^3/uL (0.0-0.2); ABSOLUTE EOSINOPHILS # (AUTO) 0.3 10^3/uL (0.0-0.6); ABSOLUTE LYMPHOCYTES (AUTO) 3.2 10^3/uL (0.5-4.7); ABSOLUTE MONOCYTES (AUTO) 0.6 10^3/uL (0.1-1.4); ABSOLUTE NEUT (AUTO) 4.3 10^3/uL (1.7-8.2); BASOPHILS % (AUTO) 0.9 % (0-2); EOSINOPHILS % (AUTO) 3.7 % (0-6); HEMATOCRIT 42.1 % (37.9-51.0); HEMOGLOBIN 14.3 g/dL (13.5-17.0); LYMPHOCYTES % (AUTO) 37.3 % (13-45); MEAN CORPUSCULAR HEMOGLOBIN 29.5 pg (27.0-33.4); MEAN CORPUSCULAR HGB CONC 34.1 g/dL (32.0-36.0); MEAN CORPUSCULAR VOLUME 87 fl (80-97); MONOCYTES % (AUTO) 7.7 % (3-13); PLATELET COUNT 483 10^3/uL (150-450); RED BLOOD COUNT 4.86 10^6/uL (4.35-5.55); RED CELL DISTRIBUTION WIDTH 14.4 % (11.5-14.0); SEGMENTED NEUTROPHILS % (AUTO) 50.4 % (42-78); TOTAL CELLS COUNTED % (AUTO) 100 %; WHITE BLOOD COUNT 8.4 10^3/uL (4.0-10.5)
[2019-12-27 00:49] LABS: ALBUMIN 3.6 g/dL (3.5-5.0); ALKALINE PHOSPHATASE 87 U/L (38-126); ASPARTATE AMINO TRANSFERASE 18 U/L (17-59); BILIRUBIN,DIRECT 0.3 mg/dL (0.0-0.4); BILIRUBIN,TOTAL 0.4 mg/dL (0.2-1.3); BLOOD UREA NITROGEN 28 mg/dL (7-20); CALCIUM 8.7 mg/dL (8.4-10.2); CARBON DIOXIDE 28 mmol/L (22-30); CHLORIDE 103 mmol/L (98-107); GLUCOSE 91 mg/dL (75-110); POTASSIUM 4.6 mmol/L (3.6-5.0); TOTAL PROTEIN 5.9 g/dL (6.3-8.2)
[2019-12-27 00:56] LABS: ANION GAP 5 (5-19)
--- NOTE | 2019-12-27 01:31 | RADIOLOGY REPORT (SQ) ---
EXAM DESCRIPTION: CT HEAD WITHOUT IV CONTRAST COMPLETED DATE/TME: 12/27/2019 00:00 CLINICAL HISTORY: Brain tumor COMPARISON: 12/13/2019 TECHNIQUE: Axial CT of the head obtained from the skull apex to the skull base without contrast. FINDINGS: No acute intracranial hemorrhage identified. Redemonstrated vasogenic edema in the anteromedial left frontal lobe without definite mass identified. Region of edema measures approximately 3.5 x 3.5 cm which is relatively stable from the comparison study. No hydrocephalus. Minimal ciol-ou-ftjis midline shift anteriorly measuring 3 mm is stable. Mild mass effect. The ventricular system and sulcal spaces are not enlarged. Scattered areas of hypodensity throughout the supratentorial white matter are nonspecific and may be related to chronic small vessel ischemic change. The visualized paranasal sinuses and the mastoids are clear. No skull fracture identified. Visualized orbits and globes are unremarkable. IMPRESSION: 1. No acute intracranial hemorrhage. 2. Redemonstrated region of vasogenic edema in the anteromedial left frontal lobe which is relatively stable in configuration from the comparison study. This region did not demonstrate enhancement on previous study. Differential considerations include low-grade neoplasm as well as other infectious, ischemic or inflammatory etiology. Contrast-enhanced MRI would provide more complete characterization. This exam was performed according to our departmental dose-optimization program, which includes automated exposure control, adjustment of the mA and/or kV according to patient size and/or use of iterative reconstruction technique.
[2019-12-27] MEDS ORDERED: DEXAMETHASONE SOD PHOS INJ 10 MG/1 ML VIAL IM ONE (02:19)
--- NOTE | 2019-12-27 02:44 | ER Document Report ---
ED General - General Chief Complaint: Headache Stated Complaint: HEADACHE Time Seen by Provider: 12/26/19 23:16 Primary Care Provider: NAVI,MICHAELA [Primary Care Provider] - Follow up as needed TRAVEL OUTSIDE OF THE [place] IN LAST 30 DAYS: No - HPI Notes: Patient is a 59-year-old male who presents to the emergency department for evaluation of a headache. It started this morning. Is frontal in nature. He was initially seen through triage, states that it has improved. He describes it as a constant pressure type pain. It does not radiate. He denies any associated difficulty seeing, speaking, swallowing. He is moving his arms and legs without difficulty. The patient has a known brain mass, likely a GBM. He has been referred on to [facility]. He has had insurance and transportation issues. He states he has an appointment on January 08 to be evaluated there, he does have transportation as well. He denies any seizure activity, no nausea or vomiting. - Related Data Allergies/Adverse Reactions: No Known Allergies Allergy (Verified 10/17/18 08:27) Home Medications: lithium, Past Medical History - General Information source: Patient - Hep C happens of MSSA he states he is perfectly fine digesting ursodiol - Social History Smoking Status: Current Every Day Smoker Drug Abuse: Marijuana Family History: Reviewed & Not Pertinent Neurological Medical History: Reports: Other - Brain tumor, likely GBM Renal/ Medical History: Denies: Hx Peritoneal Dialysis Psychiatric Medical History: Reports: Hx Anxiety, Hx Bipolar Disorder, Hx Depression Past Surgical History: Reports: Hx Orthopedic Surgery - left wrist, Hx Tonsillectomy - Immunizations Hx Diphtheria, Pertussis, Tetanus Vaccination: Yes Review of Systems - Review of Systems Constitutional: No symptoms reported EENT: No symptoms reported Cardiovascular: No symptoms reported Respiratory: No symptoms reported Gastrointestinal: No symptoms reported Genitourinary: No symptoms reported Musculoskeletal: No symptoms reported Skin: No symptoms reported Neurological/Psychological: See HPI Physical Exam - Vital signs Vitals: Temp Pulse Resp BP Pulse Ox 97.8 F 78 16 148/86 H 100 12/26/19 23:15 12/26/19 23:15 12/26/19 23:15 12/26/19 23:15 12/26/19 23:15 - Notes Notes: Vital signs reviewed, please refer to chart. Head is normocephalic, atraumatic. Pupils equal round, reactive to light. Neck is supple without meningismus. Heart is regular rate and rhythm. Lungs are clear to auscultation bilaterally. Abdomen is soft, nontender, normoactive bowel sounds throughout. Extremities without cyanosis, clubbing. Posterior calves are nontender. Peripheral pulses are equal. Skin is warm and dry. Patient is awake, alert, oriented x3. Cranial nerves II - XII are grossly intact without focal neurological deficits. Strength is plus 5 out of 5 bilateral upper and lower extremities. Sensation is intact. Reflexes symmetrical. Intact [id number]-[id number], rapid alternating movements, [id number]. Course - Re-evaluation Re-evalutation: 12/27/19 02:44 Patient presents to the emergency department for evaluation. He has a known lesion. I have seen this patient in the past. It is likely that this is a glioblastoma, will require further characterization. He was initially diagnosed back in October. It has remained relatively stable. He has no neurological deficits. He states his pain is actually improved significantly after being treated with just Tylenol here. He continues to have vasogenic edema, I will get head and treat with further steroids. The importance of follow-up with neurosurgery was stressed to the patient, he voiced understanding. Otherwise, he is to return to the emergency department with worsening or new concerning symptoms of any sort. - Vital Signs Vital signs: Temp Pulse Resp BP Pulse Ox 97.8 F 78 16 124/91 H 100 12/26/19 23:15 12/26/19 23:15 12/26/19 23:15 12/27/19 02:00 12/26/19 23:15 - Laboratory Result Diagrams: 12/27/19 00:04 12/27/19 00:04 Laboratory results interpreted by me: 12/27/19 12/27/19 12/27/19 00:04 00:04 00:04 RDW 14.4 H Plt Count 483 H Sodium 135.9 L BUN 28 H Total Protein 5.9 L Urine Urobilinogen 2.0 H - Diagnostic Test Radiology reviewed: Image reviewed, Reports reviewed Radiology results interpreted by me: 12/27/19 02:[address] 12/27/19 00:00 IMPRESSION: 1. No acute intracranial hemorrhage. 2. Redemonstrated region of vasogenic edema in the anteromedial left frontal lobe which is relatively stable in configuration from the comparison study. This region did not demonstrate enhancement on previous study. Differential considerations include low-grade neoplasm as well as other infectious, ischemic or inflammatory etiology. Contrast-enhanced MRI would provide more complete characterization. This exam was performed according to our departmental dose-optimization program, which includes automated exposure control, adjustment of the mA and/or kV according to patient size and/or use of iterative reconstruction technique. Discharge - Discharge Clinical Impression: Brain tumor Headache Qualifiers: Headache type: unspecified Headache chronicity pattern: episodic headache Intractability: not intractable Qualified Code(s): R51 - Headache Condition: Stable Disposition: HOME, SELF-CARE Instructions: Headache ([facility]) Additional Instructions: Keep your appointment as scheduled at [facility] on the . Tylenol at home as needed for pain. If you develop increased pain, vomiting, difficulty seeing, speaking, swallowing, weakness, seizures, or any other new or concerning symptoms, please return immediately to the emergency department for evaluation. [facility]errals: [facility] [Primary [facility]] - Follow up as needed
[2019-12-27 03:26] VITALS: BP 141/98
== END 2019-12-27 03:27 | disposition home or self-care (01) ==
LOC: ER 21:31
DX: D49.6 Neoplasm of unspecified behavior of brain (principal); R51 Headache; F17.200 Nicotine dependence, unspecified, uncomplicated
CPT/HCPCS: 99285; 96372; 36415; 85025; 80053; 81001; 70450; J1100

== ENCOUNTER 2020-02-14 02:19 | Emergency (ER) | payer OTHER ==
[2020-02-14] MEDS ORDERED: DEXAMETHASONE SOD PHOS INJ 10 MG/1 ML VIAL IV ONE (05:28)
[2020-02-14] MEDS ORDERED: PROCHLORPERAZINE EDISYLATE INJ 10 MG/2 ML VIAL IV ONE (05:31)
[2020-02-14] MEDS ORDERED: DEXAMETHASONE SOD PHOSPHATE INJ 4 MG/1 ML VIAL IV ONE (05:55)
--- NOTE | 2020-02-14 06:05 | ER Document Report ---
ED General - General Chief Complaint: Headache Stated Complaint: HEADACHE Primary Care Provider: [facility] [[facility]] - Follow up in 1 week Notes: 59-year-old male with recently diagnosed primary brain tumor presents with worsening headache symptoms since diagnosis of brain tumor greater than 1 month ago. Patient is scheduled for surgery in exactly 1 week at [facility] with Dr. Espinal. Patient has not had any acutely or suddenly worsening headache but has been gradually worsening over the past several weeks. Patient has been having some gait instability since before he was diagnosed with a brain tumor which is how brain tumor was diagnosed but this has not changed over the past month. Patient denies any vomiting, neck pain or stiffness, fever, sudden change in symptoms, change in vision/speech, vertigo, trauma, bleeding diatheses, anticoagulation, confusion, memory loss TRAVEL OUTSIDE OF THE [place] IN LAST 30 DAYS: No - Related Data Allergies/Adverse Reactions: No Known Allergies Allergy (Verified 10/17/18 08:27) Home Medications: lithium, ibuprofen, Past Medical History - General Information source: Patient, [facility] Records - Social History Smoking Status: Current Every Day Smoker Family History: Reviewed & Not Pertinent Renal/ Medical History: Denies: Hx Peritoneal Dialysis Psychiatric Medical History: Reports: Hx Anxiety, Hx Bipolar Disorder, Hx Depression Past Surgical History: Reports: Hx Orthopedic Surgery - left wrist, Hx Tonsillectomy - Immunizations Hx Diphtheria, Pertussis, Tetanus Vaccination: Yes Review of Systems - Review of Systems Notes: REVIEW OF SYSTEMS: CONSTITUTIONAL : Denies fever, chills, or sweats. EENT: Denies recent cold/sinus symptoms, denies throat pain CARDIOVASCULAR: Denies chest pain, NAHID RESPIRATORY: Denies cough, denies shortness of breath. GASTROINTESTINAL: Denies abdominal pain, nausea/vomiting. GENITOURINARY: Denies difficulty urinating, painful urination. MUSCULOSKELETAL: Denies neck pain, back pain. SKIN: Denies rash or skin lesions. HEMATOLOGIC : Denies easy bruising or bleeding. LYMPHATIC: Denies swollen, enlarged glands. NEUROLOGICAL: + headache, + change in gait. PSYCHIATRIC: Denies anxiety or stress or depression. Physical Exam - Vital signs Vitals: Temp Pulse Resp BP Pulse Ox 97.2 F 96 18 146/83 H 97 02/14/20 02:25 02/14/20 02:25 02/14/20 02:25 02/14/20 02:25 02/14/20 02:25 - Notes Notes: PHYSICAL EXAMINATION: GENERAL: Well-appearing, well-nourished and in no acute distress. HEAD: Atraumatic, normocephalic. EYES: Pupils equal round and appropriate constriction, sclera anicteric, conjunctiva are normal. ENT: nares patent, moist mucous membranes. NECK: Normal range of motion, supple without lymphadenopathy LUNGS: Breath sounds clear to auscultation bilaterally and equal. No wheezes rales or rhonchi. HEART: Regular rate and rhythm without murmurs ABDOMEN: Soft, nontender, no guarding, no masses, no CVAT EXTREMITIES: Normal range of motion, no pitting or edema. No cyanosis. NEUROLOGICAL: Awake, alert, conversing appropriately, moves all extremities spontaneously. Cranial nerves II through XII intact bilaterally, normal [id number]-md-[id number] bilaterally, 5 out of 5 strength in all extremities, normal sensation in all extremities, gait non-ataxic but patient reports feeling unsteady when gait is assessed PSYCH: Normal mood, normal affect. SKIN: Warm, Dry, normal turgor, no rashes or lesions noted. Course - Re-evaluation Re-evalutation: 02/14/20 06:00 Patient with gradually worsening symptoms without any signs of increased intracranial pressure, gait is stable, patient has been taking acetaminophen and ibuprofen at home without any improvement in symptoms. Will obtain repeat head CT and look for any interval changes, if worsening will discuss with Dr. Espinal and likely transfer. I discussed patient's presentation with Dr. Joslyn lares who recommends starting patient on dexamethasone 4 mg p.o. twice daily until surgery with GI prophylaxis if there are no interval changes in patient's CT. 02/14/20 06:[address] was stable from his last imaging so will discharge patient on p.o. dexamethasone and Pepcid. Patient understands plan and is in agreement and denied having any other questions or concerns. Gave patient return to ED precautions which he demonstrated understanding of. - Vital Signs Vital signs: Temp Pulse Resp BP Pulse Ox 97.2 F 96 18 146/83 H 97 02/14/20 02:25 02/14/20 02:25 02/14/20 02:25 02/14/20 02:25 02/14/20 02:25 Discharge - Discharge Clinical Impression: Brain tumor Headache Qualifiers: Headache type: other headache syndrome Qualified Code(s): G44.89 - Other headache syndrome Disposition: HOME, SELF-CARE Additional Instructions: Follow-up with your neurosurgeon for surgery as scheduled. Take all medications as scheduled till you see your neurosurgeon. If you have any worsening headache, vomiting, confusion, weakness or numbness, change in vision, change in how you walk, change in how you talk, any falls, abdominal pain, black or bloody stool, or any other worsening or alarming symptoms return to the emergency department immediately. Follow-up with your primary doctor within 1 week. Prescriptions: Dexamethasone [Decadron 4 mg Tablet] 4 mg PO BID 7 Days #14 tablet Famotidine [Pepcid] 40 mg PO BID 7 Days #28 tablet [facility]errals: [facility] [[facility]] - Follow up in 1 week
--- NOTE | 2020-02-14 06:21 | RADIOLOGY REPORT (SQ) ---
EXAM DESCRIPTION: CT HEAD WITHOUT IV CONTRAST COMPLETED DATE/TME: 02/14/2020 04:57 CLINICAL HISTORY: 59 years, Male, known brain tumor new headache COMPARISON: 12/27/2019 TECHNIQUE: Axial CT images of the brain without contrast. Sagittal and coronal reformats were performed. DL [id number] Images stored on PACS. All CT scanners at this facility use dose modulation, iterative reconstruction, and/or weight based dosing when appropriate to reduce radiation dose to as low as reasonably achievable (ALARA). [facility]: Dose Right [facility]: CareDose [facility]: Dose Right [facility]: Teradose 4D [facility]: Kony LIMITATIONS: None. FINDINGS: Grossly stable edema along the anteromedial left frontal lobe which appears to extend into the corpus callosum. The remainder of the handy-white matter differentiation is preserved. There is no hemorrhage, midline shift, herniation, hydrocephalus or extra-axial fluid collection. A mucus retention cyst is in the right maxillary sinus. Mastoid air cells are clear. Sella is normal. Bones are unremarkable. IMPRESSION: No significant change compared to the prior exam. Grossly stable edema along the anteromedial left frontal lobe with probable involvement of the corpus callosum, likely secondary to underlying malignancy. Further evaluation with an MRI with IV contrast is recommended. TECHNICAL DOCUMENTATION: Quality ID # [id number]: Final reports with documentation of one or more dose reduction techniques (e.g., Automated exposure control, adjustment of the mA and/or kV according to patient size, use of iterative reconstruction technique) copyright 2011 [employer]- All Rights Reserved
[2020-02-14 07:26] VITALS: BP 138/78
== END 2020-02-14 07:25 | disposition home or self-care (01) ==
LOC: ER 02:19
DX: D49.6 Neoplasm of unspecified behavior of brain (principal); G44.89 Other headache syndrome; R26.89 Other abnormalities of gait and mobility; F17.200 Nicotine dependence, unspecified, uncomplicated; F31.9 Bipolar disorder, unspecified; Z79.899 Other long term (current) drug therapy; Z79.1 Long term (current) use of non-steroidal anti-inflammatories (NSAID)
CPT/HCPCS: 99285; 96374; 96375; 70450; J1100; J0780